=== PATIENT | male | born 2000 | race Caucasian/White ===

== ENCOUNTER 2019-02-20 11:25 | Emergency (ER) | payer MEDICAID, SELFPAY ==
[2019-02-20 11:31] VITALS: BP 147/91; PULSE 75; RESP 12; TEMP 36.7; O2SAT 97
--- NOTE | 2019-02-20 11:43 | ED.GENADUL_ITS ---
Discharge Plan Disposition Patient Disposition: HOME Condition: Good Discharge Details Chief Complaint: Orthopedic Clinical Impression: Ganglion cyst of volar aspect of left wrist Primary Care Provider: None,None ED Provider: Baldo Rudd Home Meds and New Rx's Prescriptions: Continued pantoprazole [Protonix] 20 MG tablet,delayed release (DR/EC) 20 mg PO DAILY Qty: 30 RF: 2 hydroxyzine HCl 25 MG tablet 25 mg PO Q6H PRN Qty: 30 RF: 3 ibuprofen 600 MG tablet 600 mg PO Q6H PRN (Reason: Pain Or Fever) Qty: 30 RF: 0 topiramate [Topamax] 25 MG tablet 25 mg PO HS PRNRF: 0 Discharge Instructions Instructions: Ganglion Cysts (ED) Additional Instructions: Please wear wrist splint for comfort and take ibuprofen for any pain. If not improving over the next couple weeks please follow-up with orthopedist for reassessment and any further treatment as needed. Referrals: Samm Maravilla MD [ [facility] STAFF PHYSICIAN] - (If not improving the next 1-2 call the office for arrangement of appointment) Discharge Data Discharge Date/Time-TO BE ENTERED AT DEPARTURE: 02/20/19 12:00 Medical Decision Making Patient presenting to the emergency department for chief complaint of swelling to the volar wrist. Patient states that this was noticed yesterday and had some slight decrease in sensation to the palmar aspect of his hand. Patient has a soft movable nontender mass to the dorsum of the wrist with decreased sensation to the palmar aspect of the radial nerve distribution. I feel that this is a ganglion cyst that is irritating the cutaneous aspect of the radial nerve otherwise exam is unremarkable. Patient was placed in a wrist splint and encouraged to use ibuprofen otherwise I feel that conservative management initially is appropriate and patient was given orthopedic referral so that if he is not improving in the next 1 to 2 weeks that he can call and arrange an outpatient appointment. After discussion of diagnosis and plan of care patient has no further needs, questions, or concerns and states clear understanding to return to the emergency department for any worsening symptoms. HPI General Mode of arrival: ambulatory . Date/Time Provider Initiated Documentation: 02/20/19 11:29 . Limitations to Documentation: no limitations . Information obtained by: patient . History of Present Illness 18 year old M presents to the emergency department with the chief complaint of Left wrist swelling, described as mild, with intensity rated at 4. Quality is described as aching, and is localized to the left and upper extremity. Patie nt started experiencing this day(s) (1) and it has been constant. Movement worsens symptoms . Patient notes no other symptoms.. Patient did receive the following treatments prior to arrival, none Related Data Home Medications Medication Instructions Recorded Confirmed ibuprofen 600 mg PO Q6H PRN #30 tab 12/02/17 02/20/19 pantoprazole [Protonix] 20 mg PO DAILY #30 tab-cap 03/14/18 02/20/19 hydroxyzine HCl 25 mg PO Q6H PRN #30 tab-cap 05/03/18 02/20/19 topiramate [Topamax] 25 mg PO HS PRN 02/20/19 02/20/19 Previous Rx's Medication Instructions Recorded ibuprofen 600 mg PO Q6H PRN #30 tab 12/02/17 pantoprazole [Protonix] 20 mg PO DAILY #30 tab-cap 03/14/18 hydroxyzine HCl 25 mg PO Q6H PRN #30 tab-cap 05/03/18 Allergies Allergy/AdvReac Type Severity Reaction Status Date / Time orange Allergy Skin Rash Unverified 02/20/19 11:34 General Stated Complaint: Orthopedic STAR: 4 Review of Systems Musculoskeletal Reports as per HPI, Reports arthralgias, Denies limited range of motion, Reports numbness and Reports tingling Integumentary/Breasts Denies rash, Denies sores and Denies wounds Neurologic Reports numbness and Reports tingling PFSH Medical History Sleep trouble (Chronic 06/07/16) Childhood overweight, BMI 85-94.9 percentile (Chronic 06/07/16) Migraine (Chronic 07/02/14) Failed vision screen (Chronic 07/02/14) Concussion (Resolved) Migraine Visual problems Wears glasses Family History Mother Migraine Decreased vision Father Substance abuse GRANDPARENT Heart disease Bleeding disorder Other Asthma Sister Decreased vision Maternal Aunt Decreased vision Social History Smoking/Tobacco Use Status: Never Alcohol Intake: never Drug use: Occasionally Substance use type: marijuana Do you feel safe at home: Yes Do you feel safe in your relationship?: Yes Exam Const General: cooperative, no acute distress and not ill appearing Orientation: alert, awake and oriented x3 Resp Effort & Inspection: normal respiratory effort, able to speak in complete sentences and no respiratory distress Cardio Rate: regular rate Rhythm: regular rhythm Skin General skin exam: no rashes or lesions noted Extrem Left upper extremity: wrist ( ) Details: tenderness Location: of the distal radius, swelling Location: of the volar wrist (Soft movable round mass), normal ROM, normal vascular exam and radial pulse present; no lacerations, no ecchymosis, no crepitus and no deformity and hand Details: normal to inspection, normal capillary refill, neurosensory exam abnormal Details: radial nerve sensory function abnormal Details: decreased light touch sensation (Javed aspect), normal ROM of fingers and no swelling; no tenderness Course Vital Signs Temperature 36.7 C 02/20/19 11:31 Pulse 75 02/20/19 11:31 Respiratory Rate 12 02/20/19 11:31 Blood Pressure 147/91 H 02/20/19 11:31 Pulse Oximetry 97 02/20/19 11:31 Temperature 36.7 C 02/20/19 11:31 Temperature Source Temporal Artery Scan 02/20/19 11:31 Pulse 75 02/20/19 11:31 Respiratory Rate 12 02/20/19 11:31 Respiratory Effort Non-Labored 02/20/19 11:32 Blood Pressure 147/91 H 02/20/19 11:31 Blood Pressure Position Sitting 02/20/19 11:31 Pulse Oximetry 97 02/20/19 11:31 Oxygen Delivery Method Room Air 02/20/19 11:31 Oxygen Flow Rate 0 02/20/19 11:31 Pain Level 1 02/20/19 11:35
[2019-02-20 12:01] VITALS: BP 147/91; PULSE 75; RESP 12; TEMP 36.7; O2SAT 97
== END 2019-02-20 12:00 | disposition home or self-care (01) ==
PROVIDERS: Emergency Provider Nurse Practitioner Family
DX: M67.432 Ganglion, left wrist (principal)
CPT/HCPCS: 29125; 99283; 99282; L3908

== ENCOUNTER 2019-03-11 16:46 | Emergency (ER) | payer MEDICAID, SELFPAY ==
[2019-03-11 16:54] VITALS: BP 120/55; PULSE 82; RESP 16; TEMP 37.2; O2SAT 92
--- NOTE | 2019-03-11 17:54 | ED.GENADUL_ITS ---
Discharge Plan Disposition Patient Disposition: HOME Condition: Good Discharge Details Chief Complaint: RespSymp Clinical Impression: Asthma Primary Care Provider: None,None ED Provider: Ernie Diallo Home Meds and New Rx's Prescriptions: No Action pantoprazole [Protonix] 20 MG tablet,delayed release (DR/EC) 20 mg PO DAILY Qty: 30 RF: 2 hydroxyzine HCl 25 MG tablet 25 mg PO Q6H PRN Qty: 30 RF: 3 topiramate [Topamax] 25 MG tablet 25 mg PO HS PRNRF: 0 Discharge Instructions Instructions: Asthma (ED) Additional Instructions: You have an exacerbation of asthma. Please take your inhaler, 2 puffs, 4 times a day for the next 3 to 4 days, and then every 6 hours as needed after that. Pl ease continue your amoxicillin that you are currently on. Please reduce your smoking, with a goal of stopping as this does worsen your asthma. If you notice any worsening of your symptoms, or any new symptoms such as vomiting, diarrhea, fever, chills, shortness of breath, chest pain, numbness, weakness, or fainting , please return immediately to the emergency department for reevaluation. Please follow up with your primary care provider as soon as possible for reassessment and reevaluation. As always, it was a pleasure participating in your medical care today. Medical Decision Making This is a 18-year-old male who presents today for evaluation of mild shortness of breath. Patient states that he was diagnosed with strep throat 5 to 7 days ago and has been on amoxicillin ever since then. He has had a notable amount of postnasal drip over the last day or 2, and noticed slight increase in shortness of breath. He denies any fever, chills, chest pain. He denies any red flags for PE. Physical exam demonstrates mild wheeze in the right upper lung cason. No crackles or rails throughout the rest of the lung exam. Patient was given a DuoNeb treatment, and after this he states that he had complete resolution of his symptoms and feels excellent. Repeat bedside pulse oximetry is 98%. Patient feels well, no more wheezes on lung exam. No clinical evidence of pneumonia at this time. Recommend continuation of amoxicillin, we will give albuterol here in the ED for home use, recommend close follow-up with his PCP. We have discussed red flags which to return. Diagnosis asthma exacerbation. I have extensively reviewed the treatment plan and discharge instructions with the patient and their family. I have addressed all patient concerns at this time. The patient and family was made aware of what symptoms to monitor for that would warrant a return to the emergency department. Discussed the plan with the patient and family, they demonstrate verbal understanding and agreement with our assessment and plan at this time. HPI General Date/Time Provider Initiated Documentation: 03/11/19 16:49 . HPI Narrative: This is a pleasant 18-year-old male with a past medical history of asthma who does smoke daily marijuana who presents today for evaluation of cough. He was recently diagnosed with strep throat and started on amoxicillin for which she is been taking for the last 5 to 7 days. He states that over the last day or so though he has had significant amounts of postnasal drip, and his felt mildly short of breath. He does have some mild productivity to his cough. He denies fever or chills. He denies malaise. He denies hemoptysis, chest pain, numbness tingling or weakness. He has no other complaints modifying factors. He denies any IV or illicit drug use. He does not use his inhaler at home. Denies PE risk factors such as recent long car rides, immobilization, recent surgery, prior history of DVT or PE, family history of PE or DVT, morbid obesity, exogenous estrogen and smoking, hemoptysis, history of cancer. Related Data Home Medications Medication Instructions Recorded Confirmed pantoprazole [Protonix] 20 mg PO DAILY #30 tab-cap 03/14/18 03/11/19 hydroxyzine HCl 25 mg PO Q6H PRN #30 tab-cap 05/03/18 03/11/19 topiramate [Topamax] 25 mg PO HS PRN 02/20/19 03/11/19 Previous Rx's Medication Instructions Recorded pantoprazole [Protonix] 20 mg PO DAILY #30 tab-cap 03/14/18 hydroxyzine HCl 25 mg PO Q6H PRN #30 tab-cap 05/03/18 Allergies Allergy/AdvReac Type Severity Reaction Status Date / Time orange Allergy Skin Rash Unverified 03/11/19 16:55 General Stated Complaint: RespSymp STAR: 4 Review of Systems Review of Systems All systems reviewed & are unremarkable except as noted in HPI and below PFSH Social History Smoking/Tobacco Use Status: Never Alcohol Intake: never Drug use: Daily Substance use type: marijuana Do you feel safe at home: Yes Do you feel safe in your relationship?: Yes Exam Narrative Exam Narrative: 1.Const: Well-nourished, Well-developed, appearing stated age 2.Eyes: PERRL, no conjunctival injection, and symmetrical lids. 3.ENT: Atraumatic external nose and ears. Moist MM. Neck: Symmetric, trachea midline, No thyromegaly. 4.CVS: +S1/S2, No murmurs or gallops. Peripheral pulses 2+ and equal in all extremities. Brisk capillary refill in all extremities. 5.RESP: Unlabored respiratory effort. No crackles or rhonchi. Minimal wheeze in the right upper lung field. 6.GI: Soft, Nontender/Nondistended, No hepatosplenomegaly. No guarding or rebound. 7.MSK: Normocephalic/Atraumatic, Extremities w/o deformity or ttp No cyanosis or clubbing, Normal movement of all extremities 8.Skin: Warm, Dry. No rashes or lesions. 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 Sensation grossly intact, no focal neurologic deficits. 10.Psych: (AAO) x3. Appropriate mood and affect Course Vital Signs Temperature 37.2 C 03/11/19 16:54 Pulse 82 03/11/19 16:54 Respiratory Rate 16 03/11/19 16:54 Blood Pressure 120/55 L 03/11/19 16:54 Pulse Oximetry 92 L 03/11/19 16:54 Temperature 37.2 C 03/11/19 16:54 Temperature Source Skin 03/11/19 16:54 Pulse 82 03/11/19 16:54 Respiratory Rate 16 03/11/19 16:54 Respiratory Effort 03/11/19 16:56 Respiratory Depth Normal 03/11/19 16:56 Blood Pressure 120/55 L 03/11/19 16:54 Blood Pressure Position Sitting 03/11/19 16:54 Pulse Oximetry 92 L 03/11/19 16:54 Oxygen Delivery Method Room Air 03/11/19 16:54 Oxygen Flow Rate 0 03/11/19 16:54 Pain Level 0 03/11/19 16:54
== END 2019-03-11 18:05 | disposition home or self-care (01) ==
PROVIDERS: Emergency Provider Student in an Organized Health Care Education/Training Program
DX: J45.909 Unspecified asthma, uncomplicated (principal)
CPT/HCPCS: 99283

== ENCOUNTER 2019-11-23 19:21 | Emergency (ER) | payer MEDICAID, SELFPAY ==
--- NOTE | 2019-11-23 19:22 | ED.GENADUL_ITS ---
Discharge Plan Disposition Patient Disposition: HOME Condition: Good Discharge Details Chief Complaint: Fever Clinical Impression: URI (upper respiratory infection), Cough Primary Care Provider: None,None ED Provider: Lindsey Rooney Home Meds and New Rx's Prescriptions: New benzonatate [Tessalon Perles] 100 mg capsule 100 mg PO TID PRN (Reason: cough) Qty: 14 RF: 0 Continued hydroxyzine HCl 25 MG tablet 25 mg PO Q6H PRN Qty: 30 RF: 3 topiramate [Topamax] 25 MG tablet 25 mg PO HS PRNRF: 0 Discharge Instructions Instructions: Benzonatate (By mouth), Acute Cough (ED) Additional Instructions: Continue to encourage water intake. Tylenol and ibuprofen as needed for discomfort or fevers. You may use the Tessalon Perles as prescribed to help with cough. Our manager intensive care unit will recheck to you regarding follow-up with primary care. If you develop difficulty breathing, shortness of breath, inability stay hydrated or other new/worsening symptom please seek care urgently once again. Otherwise, please local primary care in 1 to 2 weeks if not improved. Medical Decision Making Patient is a pleasant 19-year-old male presenting today with chief complaint of cough. He reports that he has had cough for the past 2 weeks that this is p rogressively been worsening. Denies any sore throat or congestion. States that he has had a temperature with a T-max of 101 this morning. Denies any recent travel. No known sick contacts. States is gradual onset. Denies any shortness of breath or difficulty breathing. He reports that this morning he had a coughing fit at which time he brought up large amount of clear-colored sputum and states is very similar to emesis. Denies any hematemesis, hemoptysis. States that he had asthma as a child but has no lung issues at this time. Does smoke marijuana daily. On exam, patient is resting comfortably. He does not appear to be in any acute distress. He is able to speak in complete sentences. No cough was noted on exam. Lungs are clear. Will obtain imaging of the length of his symptoms and that they have progressively been increasing. Chest x-ray was reviewed by radiologist: FINDINGS: Lungs: Unremarkable. No consolidation. Pleural space: Unremarkable. No pleural effusion. No pneumothorax. Heart/Mediastinum: Unremarkable. No cardiomegaly. Bones/joints: Unremarkable. IMPRESSION: No acute findings. Discussed these findings with the patient. Plan to treat symptomatic manageme nt, will prescribe Tessalon Perles. Encourage close follow-up with primary care. He does not have one, I have asked her manager intensive care unit to help facilitate follow-up at the end of next week for reevaluation. He was given return precautions. All questions and concerns were addressed and he is in agreement this plan. HPI General Mode of arrival: ambulatory . Date/Time Provider Initiated Documentation: 11/23/19 19:22 . Limitations to Documentation: no limitations . Information obtained by: patient and RN notes reviewed . History of Present Illness 19 year old M presents to the emergency department with the chief complaint of cough, described as moderate (states cough has been increasing in frequency, no pain associated with this), Patient started experiencing this week(s) (2) and it has been constant. No relieving factors improve symptom(s), No exacerbating factors reported . Patient notes cough, fever/chills (T max 101 this morning) and nausea/vomiting (vomited x 1 associated with coughing); denies chest pain, diaphoresis, headaches, loss of appetite, rash, shortness of breath and weakness. Patient did receive the following treatments prior to arrival, none Related Data Home Medications Medication Instructions Recorded Confirmed hydroxyzine HCl 25 mg PO Q6H PRN #30 tab-cap 05/03/18 11/23/19 topiramate [Topamax] 25 mg PO HS PRN 02/20/19 11/23/19 benzonatate [Tessalon Perles] 100 mg PO TID PRN #14 cap 11/23/19 Previous Rx's Medication Instructions Recorded hydroxyzine HCl 25 mg PO Q6H PRN #30 tab-cap 05/03/18 benzonatate [Tessalon Perles] 100 mg PO TID PRN #14 cap 11/23/19 Allergies Allergy/AdvReac Type Severity Reaction Status Date / Time orange Allergy Skin Rash Unverified 03/11/19 16:55 General STAR: 4 Review of Systems Constitutional Constitutional: Reports as per HPI and Denies headache(s) Eyes Eyes: Reports as per HPI, Denies eye discharge and Denies irritation ENT Ears, Nose, Mouth, and Throat: Reports as per HPI and Denies headache(s) Cardiovascular Cardiovascular: Reports as per HPI, Denies chest pain and Denies dyspnea Respiratory Respiratory: Reports as per HPI and Denies dyspnea Gastrointestinal Gastrointestinal: Reports as per HPI, Denies abdominal pain, Denies change in bowel habits, Denies nausea and Denies vomiting Integumentary/Breasts Skin/Breast: Reports as per HPI and Denies rash Neurologic Neurologic: Reports as per HPI and Denies headache(s) [facility], [facility] Medical History Childhood overweight, BMI 85-94.9 percentile (Chronic 06/07/16) Concussion (Resolved) Reports at age 12 he struck his head on the bottom of the pool and was symptomatic for a few weeks afterwards Failed vision screen (Chronic 07/02/14) R 20/80, L 20/60 Migraine Migraine (Chronic 07/02/14) Sleep trouble (Chronic 06/07/16) Visual problems Wears glasses Social History Smoking/Tobacco Use Status: Never Alcohol Intake: never Drug use: Daily Substance use type: marijuana Do you feel safe at home: Yes Do you feel safe in your relationship?: Yes Exam Const General: cooperative, healthy appearing, comfortable, no acute distress, well developed and well groomed Nutritional Appearance: average body habitus and well nourished Orientation: alert and awake [facility] Head: normal to inspection, normocephalic and atraumatic Ears: hearing grossly normal bilaterally, external ears normal and TM's normal bilaterally General nose exam: external nose normal and nares normal Face and sinus: normal facial exam, sinuses nontender and face symmetric Mouth: oral mucosae normal, lip normal, tongue normal, oropharynx normal and moist mucous membranes Teeth and gingiva: dentition normal Throat: posterior oropharynx normal, tonsils normal and uvula midline Eyes General: appearance normal, both eyes and all related structures Neck Neck: normal visual inspection, full ROM, no lymphadenopathy and no meningeal signs Resp Effort & Inspection: normal respiratory effort, able to speak in complete sentences and no respiratory distress Auscultation: clear to auscultation bilaterally, no rales, no rhonchi and no wheezes Cardio Rate: regular rate Rhythm: regular rhythm Heart Sounds: S1 normal and S2 normal Skin General skin exam: no rashes or lesions noted Neuro General: alert and awake Cognition: normal cognition Speech: speech normal Gait: normal gait Psych Appearance: grossly normal and well kempt Mental Status: mental status grossly normal Speech and Movement: speech and movement normal
[2019-11-23 19:26] VITALS: BP 133/69; PULSE 96; RESP 18; TEMP 36.2; O2SAT 96
--- NOTE | 2019-11-23 19:36 | NUR.NOTE ---
Nursing Note: Pt states no contact with anyone with COVID 19 and has not traveled to affected countries
--- NOTE | 2019-11-23 20:00 | DI.RAD_ITS ---
EXAM: XR CHEST 2V PA LATERAL CLINICAL HISTORY: cough x 2 weeks TECHNIQUE: 2D digital imaging was performed. COMPARISON: No exams were available for comparison FINDINGS: MEDIASTINUM: Normal. HEART: Normal. PULMONARY VASCULATURE: Normal. LUNGS: Clear. PLEURAL SPACE: No pleural effusion or pneumothorax. BONE:Normal. OTHER FINDINGS:Normal. IMPRESSION: No acute pulmonary findings. DATA REPOSITORY: RADIATION DOSE DELIVERED:
--- NOTE | 2019-11-23 20:08 | DI.VRAD_ITS ---
PROCEDURE INFORMATION: Exam: XR Chest, 2 Views Exam date and time: 11/23/2019 7:57 PM Age: 19 years old Clinical indication: Patient HX: Cough x 2 weeks TECHNIQUE: Imaging protocol: XR of the chest Views: 2 views. COMPARISON: No relevant prior studies available. FINDINGS: Lungs: Unremarkable. No consolidation. Pleural space: Unremarkable. No pleural effusion. No pneumothorax. Heart/Mediastinum: Unremarkable. No cardiomegaly. Bones/joints: Unremarkable. IMPRESSION: No acute findings. Dictated and Authenticated by: Kev Gore MD. Ordering:JORDAN Portillo MD
[2019-11-23] MEDS: Benzonatate 100 MG CAP 200 MG PO (20:21)
== END 2019-11-23 23:05 | disposition home or self-care (01) ==
PROVIDERS: Emergency Provider Physician Assistant
DX: J06.9 Acute upper respiratory infection, unspecified (principal); R05 Cough; R50.9 Fever, unspecified; F12.10 Cannabis abuse, uncomplicated
CPT/HCPCS: 99283; 71046

== ENCOUNTER 2020-02-22 06:21 | Emergency (ER) | payer MEDICAID, SELFPAY ==
[2020-02-22 06:24] VITALS: BP 140/78; PULSE 70; RESP 16; TEMP 36.5; O2SAT 98
--- NOTE | 2020-02-22 06:32 | ED.GENADUL_ITS ---
Discharge Plan Disposition Patient Disposition: HOME Condition: Good Discharge Details Chief Complaint: DentalOral Clinical Impression: Dental infection Primary Care Provider: None,None ED Provider: Milton Yepez Meds and New Rx's Prescriptions: New amoxicillin 500 mg capsule 500 mg PO TID Qty: 20 RF: 0 Discharge Instructions Instructions: Dental Abscess (ED) Additional Instructions: Take antibiotic as directed. Alternate ibuprofen with acetaminophen as we discussed. Follow-up with dentistry as scheduled. Return to ED for fever, face swelling/redness, difficulty breathing, inability to swallow. Medical Decision Making Patient with worsening dental pain as well as percussion tenderness suggesting probable dental infection. We will start him on amoxicillin. We will have him alternate ibuprofen with acetaminophen. Follow-up with dentist as planned. Return to ED for worsening pain, fever, facial swelling or redness, difficulty breathing, inability to swallow. HPI General Mode of arrival: ambulatory . Date/Time Provider Initiated Documentation: 02/22/20 06:30 . Limitations to Documentation: no limitations . Information obtained by: patient and RN notes reviewed . HPI Narrative: Patient presents to ED with worsening right upper tooth ache. Tooth has been bothering him for some time. He is scheduled to have extraction of that tooth as well as wisdom teeth on the th. Over the last few days his upper jaw and face have been getting worse in terms of pain. He has had no fever. He is noticed no facial swelling. He has taken ibuprofen sporadically but nothing today. Related Data Home Medications Medication Instructions Recorded Confirmed amoxicillin 500 mg PO TID #20 cap 02/22/20 Previous Rx's Medication Instructions Recorded amoxicillin 500 mg PO TID #20 cap 02/22/20 Allergies Allergy/AdvReac Type Severity Reaction Status Date / Time orange Allergy Skin Rash Unverified 02/22/20 06:27 General Stated Complaint: DentalOral STAR: 4 Review of Systems Constitutional Constitutional: Denies fever(s) ENT Ears, Nose, Mouth, and Throat: Reports dental pain, Denies dysphagia and Denies neck pain Cardiovascular Cardiovascular: Denies dyspnea Respiratory Respiratory: Denies dyspnea Gastrointestinal Gastrointestinal: Denies dysphagia Musculoskeletal Musculoskeletal: Denies neck pain [facility] Medical History Concussion (Resolved) Reports at age 12 he struck his head on the bottom of the pool and was symptomatic for a few weeks afterwards Migraine (Chronic 07/02/14) Sleep trouble (Chronic 06/07/16) Surgical History No significant past surgical history (Acute) Social History Smoking/Tobacco Use Status: Never Alcohol Intake: never Drug use: Daily Substance use type: marijuana Do you feel safe at home: Yes Do you feel safe in your relationship?: Yes Exam Const General: cooperative, comfortable and no acute distress Nutritional Appearance: obese Orientation: alert and oriented x3 HENMT Face and sinus: normal facial exam, no erythema, no edema and no fluctuance Mouth: oral mucosae normal, lip normal and tongue normal Teeth and gingiva: gingiva normal and abnormal tooth or associated gingiva (Tooth #2 with decay and fracture, percussion tenderness present) Neck Neck: normal visual inspection Resp Effort & Inspection: normal respiratory effort Course Vital Signs Vital signs: Vital Signs Temperature 97.7 F 02/22/20 06:24 Pulse 70 02/22/20 06:24 Respiratory Rate 16 02/22/20 06:24 Blood Pressure 140/78 02/22/20 06:24 Pulse Oximetry 98 02/22/20 06:24 Temperature 97.7 F 02/22/20 06:24 Temperature Source Skin 02/22/20 06:24 Pulse 70 02/22/20 06:24 Respiratory Rate 16 02/22/20 06:24 Respiratory Effort 02/22/20 06:28 Blood Pressure 140/78 02/22/20 06:24 Blood Pressure Position Sitting 02/22/20 06:24 Pulse Oximetry 98 02/22/20 06:24 Oxygen Delivery Method Room Air 02/22/20 06:24 Oxygen Flow Rate 0 02/22/20 06:24 Pain Level 7 02/22/20 06:28
[2020-02-22] MEDS: Amoxicillin 500 MG CAP PO (06:42)
[2020-02-22] MEDS: Ibuprofen 600 MG TAB PO (06:42)
== END 2020-02-22 06:49 | disposition home or self-care (01) ==
PROVIDERS: Emergency Provider Emergency Medicine
DX: R68.84 Jaw pain (principal); K04.7 Periapical abscess without sinus
CPT/HCPCS: 99283

== ENCOUNTER 2020-05-19 14:50 | Outpatient (REF) | payer MEDICAID, SELFPAY ==
[2020-05-22 13:47] LABS: Method Summary See Comments; Patient Race White; SARS-CoV-2 RNA Undetected (Undetected); SARS-CoV-2 Specimen Source Nasal
== END 2020-05-19 15:10 ==
LOC: NCHCN 14:50
PROVIDERS: Visit Provider Nurse Practitioner Family
DX: R05 Cough (principal)
CPT/HCPCS: U0003

== ENCOUNTER 2020-08-25 19:19 | Outpatient (REF) | payer MEDICAID, SELFPAY ==
[2020-08-29 19:19] LABS: COVID-19 RT-PCR Result NEGATIVE (Negative)
== END 2020-08-25 19:39 ==
LOC: NCHCN 19:19
PROVIDERS: PCP Nurse Practitioner Family; Visit Provider Nurse Practitioner Family
DX: Z20.828 Contact with and (suspected) exposure to other viral communicable diseases (principal)
CPT/HCPCS: U0003

== ENCOUNTER 2021-11-20 16:16 | Emergency (ER) | payer MEDICAID, SELFPAY ==
[2021-11-20 16:21] VITALS: BP 147/78; PULSE 75; RESP 18; TEMP 36.7; O2SAT 98
--- NOTE | 2021-11-20 16:33 | W.ED.GENAD ---
Discharge Plan Disposition Patient Disposition: HOME Condition: Stable Discharge Details Clinical Impression: Dog bite of left lower leg Primary Care Provider: Kirk Gipson ED Provider: Marta Jaffe Home Meds and New Rx's Prescriptions: New amoxicillin-pot clavulanate [Augmentin] 500-125 mg tablet 1 tab PO BID 7 Days Qty: 14 0RF No Action amoxicillin 500 mg capsule 500 mg PO TID Qty: 20 0RF Discharge Instructions Instructions: Animal Bite (ED) Additional Instructions: Please take the antibiotic twice daily as prescribed. Take it with a probiotic or eat yogurt while taking the medication. Keep wound clean and dry. Wash with soap and water daily. You may apply antibiotic ointment for the first 1 to 2 days. However then allowed to air dry. Please return for any red streaks, drainage, swelling, or signs of infection. Follow up with primary care provider in 3-5 days. Return to ED sooner if any worsening or concerns. Increase oral fluids. Please take Tylenol or Ibuprofen with food every 4-6 hours as needed for pain and swelling. Referrals: Kirk Gipson, TAMALE MAKER [Primary Care Provider] - 2 weeks Medical Decision Making 21-year-old male presents to the ER with left calf dog bite which occurred prior to arrival. Patient states that the person that they are renting from has a [place] bit side of the leg. He does have a circular superficial dog bite with surrounding erythema and abrasions noted to the left lateral calf. It did break the skin in multiple areas. No suturable laceration noted bleeding is controlled. He has not had a tetanus shot within the last 5 to 10 years. Last tetanus was 2011. Wound care, Augmentin will be given here in the department, Tdap and will place patient on 5 to 7 days of. Animal control dog bite form filled out by staffing consultant. Patient discharged with home care and strict return instructions, verbalized understanding. This text was generated using [employer] system, please disregard any oddities of phrase or misspellings. HPI General Mode of arrival: ambulatory. Date/Time Provider Initiated Documentation: 11/20/21 16:18. Limitations to Documentation: no limitations. Information obtained by: patient and RN notes reviewed. HPI Narrative: 21-year-old male presents to the ER with left calf dog bite which occurred prior to arrival. Patient states that the person that they are renting from has a [place] bit side of the leg. He does have a circular superficial dog bite with surrounding erythema and abrasions noted to the left lateral calf. It did break the skin in multiple areas. No suturable laceration noted bleeding is controlled. He has not had a tetanus shot within the last 5 to 10 years. Last tetanus was 2011. Related Data Home Medications Medication Instructions Recorded Confirmed amoxicillin 500 mg capsule 500 mg PO TID #20 cap 02/22/20 amoxicillin 500 mg-potassium 1 tab PO BID 7 Days #14 tab 11/20/21 clavulanate 125 mg tablet (Augmentin) Previous Rx's Medication Instructions Recorded amoxicillin 500 mg capsule 500 mg PO TID #20 cap 02/22/20 amoxicillin 500 mg-potassium 1 tab PO BID 7 Days #14 tab 11/20/21 clavulanate 125 mg tablet (Augmentin) Allergies Allergy/AdvReac Type Severity Reaction Status Date / Time orange Allergy Skin Rash Unverified 02/22/20 06:27 General Stated Complaint: AnimalBite STAR: 3 Review of Systems All systems reviewed & are unremarkable except as noted in HPI and below Integumentary/Breasts Skin/Breast: Reports as per HPI and Reports wounds PFSH All Active Problems (Updated 11/20/21 @ 16:47 by Marta Jaffe) Dog bite of left lower leg (Acute) Ganglion cyst of volar aspect of left wrist (Acute) Sleep trouble (Chronic 06/07/16) Childhood overweight, BMI 85-94.9 percentile (Chronic 06/07/16) Migraine (Chronic 07/02/14) Failed vision screen (Chronic 07/02/14) R 20/80, L 20/60 Medical History (Updated 11/20/21 @ 16:47 by Marta Jaffe) Concussion Reports at age 12 he struck his head on the bottom of the pool and was symptomatic for a few weeks afterwards Surgical History No significant past surgical history Family History Mother Migraine Decreased vision Father Substance abuse GRANDPARENT Heart disease Bleeding disorder Other Asthma Sister Decreased vision Maternal Aunt Decreased vision Social History Smoking/Tobacco Use Status: Never Smoking risk assessment performed?: Yes Alcohol Intake: never Drug use: Daily Substance use type: marijuana Do you feel safe at home: Yes Do you feel safe in your relationship?: Yes Exam Extrem General: normal to inspection Left lower extremity: normal to inspection, full ROM and normal capillary refill; No no edema Ankle/foot/toe images: 1. Dog Bite, Multiple Teeth saha noted, superficial, surrounding superficial abrasion noted. Course Vital Signs Vital signs: Vital Signs Temperature 36.7 C 11/20/21 16:21 Pulse 75 11/20/21 16:21 Respiratory Rate 18 11/20/21 16:21 Blood Pressure 147/78 H 11/20/21 16:21 Pulse Oximetry 98 11/20/21 16:21 Temperature 36.7 C 11/20/21 16:21 Temperature Source Tympanic 11/20/21 16:21 Pulse 75 11/20/21 16:21 Respiratory Rate 18 11/20/21 16:21 Respiratory Effort 11/20/21 16:24 Blood Pressure 147/78 H 11/20/21 16:21 Blood Pressure Position Supine 11/20/21 16:21 Pulse Oximetry 98 11/20/21 16:21 Oxygen Delivery Method Room Air 11/20/21 16:21 Oxygen Flow Rate 0 11/20/21 16:21 Pain Level 1 11/20/21 16:21
[2021-11-20] MEDS: Amoxicillin 875/Clav. 125 TAB PO (16:36)
== END 2021-11-20 16:58 | disposition home or self-care (01) ==
PROVIDERS: Emergency Provider Registered Nurse Emergency; PCP Nurse Practitioner Family
DX: S81.852A Open bite, left lower leg, initial encounter (principal); W54.0XXA Bitten by dog, initial encounter
CPT/HCPCS: 90471; 99284; 99283

== ENCOUNTER 2021-12-25 09:53 | Emergency (ER) | payer MEDICAID, SELFPAY ==
[2021-12-25 10:22] VITALS: BP 130/64; PULSE 91; RESP 16; TEMP 36.6; O2SAT 98
--- NOTE | 2021-12-25 11:45 | RT.EKG_ITS ---
APPROVED REPORT Exam: Resting ECG Reason for Exam: dizziness Patient Location: E HR:68 bpm ECG Measurements Heart Rate 68 AXIS VT 154 P 44 QRSd 100 QRS 48 QT 350 T 16 QTc 373 Conclusion Sinus arrhythmia...V-rate 56- 81, variation>10% ST elev, probable normal early repol pattern...ST elevation, age<55. Sinus. Benign ealry repolarization. No STEMI. I have reviewed and interpreted ECG and agree with software generated interpretation.
[2021-12-25 12:13] LABS: Abs Immature Grans 0.02 10^3/uL (0.0-0.06); Absolute Basophil Count 0.02 10^3/uL (0.0-0.2); Absolute Lymphocyte Count 0.66 10^3/uL (1.2-3.4); Absolute Monocyte Count 0.85 10^3/uL (0.1-0.8); Absolute Neutrophil Count 4.44 10^3/uL (1.2-6.7); Basophils % 0.3; HCT 43.5 % (40.0-50.0); HGB 14.1 g/dL (13.5-17.5); Immature Grans % 0.3; MCH 27.4 pg (27.0-33.0); MCHC 32.4 % (32.0-36.0); MCV 84.6 fL (80-95); MPV 9.7 fL (8.0-11.0); Monocytes % 14.2; Neutrophils % 74.2; Nucleated RBC 0 %; Platelet Count 225 10^3/uL (130-400); RBC 5.14 10^6/uL (4.36-5.78); RDW 12.5 % (11.8-14.1); RDW-SD 38.6 fL; WBC 5.99 10^3/uL (4.4-10.8)
--- NOTE | 2021-12-25 12:15 | DI.CT_ITS ---
Exam(s) CT HEAD WO EXAM: CT HEAD WO CLINICAL HISTORY: Headache, Nausea. TECHNIQUE: Imaging Protocol: Axial computed tomography images with coronal and sagittal reformatted images were created and reviewed COMPARISON: No exams were available for comparison FINDINGS: There are no skull fractures nor fluid in the visualized paranasal sinuses. There is no evidence of intracranial hemorrhage, mass effect, or shift of midline structures. There are no extra-axial fluid collections. The ventricles are not enlarged or shifted and there is no blo od within the ventricular system nor within the basal cisterns. IMPRESSION: No acute intracranial findings on this noninfused CT scan of the brain. RADIATION DOSE DELIVERED: 755.68mGy.cm Total DLP DATA REPOSITORY: All CT scans at this facility are submitted to the National Radiology Data Registry (NRDR) Dose Index Registry (DIR) with the [employer] (ACR). RADIATION OPTIMIZATION: All CT scans at this facility use at least one of these dose optimization te chniques: automated exposure control; mA and/or kV adjustment per patient size (includes targeted exa ms where dose is matched to clinical indication); or iterative reconstruction.
[2021-12-25 12:26] LABS: ALT 57 U/L (16-63); AST 28 U/L (15-37); Albumin 4.3 g/dL (3.4-5.0); Alkaline Phosphatase 101 U/L (46-116); Anion Gap 6.7 mmol/L (3-11); BUN 13 mg/dL (7-18); Bilirubin, Total 0.4 mg/dL (0.2-1.0); CO2 27.3 mmol/L (21.0-32.0); CREATININE 1.1 mg/dL (0.70-1.30); Calcium 9.3 mg/dL (8.5-10.1); Chloride 102 mmol/L (98-107); Glucose 100 mg/dL (74-106); Potassium 3.8 mmol/L (3.5-5.1); Sodium 136 mmol/L (136-145)
--- NOTE | 2021-12-25 12:30 | DI.CT_ITS ---
Exam(s) CT ABDOMEN PELVIS WO EXAM: CT ABDOMEN PELVIS WO CLINICAL HISTORY: Abd Pain, N/V/D. TECHNIQUE: Imaging Protocol: Axial computed tomography images with coronal and sagittal reformatted images were created and reviewed CONTRAST MATERIAL: Intravenous: none Oral: None COMPARISON: CT CT HEAD WO from 12/25/2021 FINDINGS: VISUALIZED LUNG BASES: No nodules nor pleural effusions evident. ABDOMEN: There is no ascites. LIVER: There are no obvious focal hepatic lesions evident of this noninfused study. GALLBLADDER/BILIARY: No obvious gallbladder pathology. CBD is not dilated. PANCREAS: No evidence of pancreatic mass nor dilatation of the pancreatic duct. SPLEEN: Spleen size is upper normal. No obvious splenic lesions evident on this noninfused study ADRENALS: There are no significant adrenal masses. KIDNEYS:No cysts evident. No solid renal masses. No calculi nor hydronephrosis. . ABDOMINAL AORTA: Abdominal aorta is not enlarged. Retroaortic left renal vein is noted, seen approxi mately 5 percent of general population. LYMPH NODES: There is no retroperitoneal nor paraaortic adenopathy. ABDOMINAL WALL: No evidence of significant anterior abdominal wall nor inguinal hernia. GI: There is no evidence of bowel obstruction, free air, nor abscess. PELVIS: LYMPH NODES: There is no intrapelvic nor inguinal adenopathy. GI: No evidence of appendicitis.There is no significant sigmoid diverticular disease. URINARY BLADDER: No calculi nor obvious masses evident REPRODUCTIVE: Prostate gland normal size. Seminal vesicles unremarkable. OSSEOUS: No significant osseous lesions. IMPRESSION: 1. No significant findings in the abdomen and pelvis on this non infused CT study. 2. No renal tract calculi. No hydronephrosis. 3. No evidence of acute inflammatory process in either iliac fossa. Appendix appears unremarkable. RADIATION DOSE DELIVERED: 1,330.54mGy.cm Total DLP DATA REPOSITORY: All CT scans at this facility are submitted to the National Radiology Data Registry (NRDR) Dose Index Registry (DIR) with the [employer] (ACR). RADIATION OPTIMIZATION: All CT scans at this facility use at least one of these dose optimization te chniques: automated exposure control; mA and/or kV adjustment per patient size (includes targeted exa ms where dose is matched to clinical indication); or iterative reconstruction.
--- NOTE | 2021-12-25 12:31 | ED.GENADUL_ITS ---
Discharge Plan Disposition Patient Disposition: HOME Condition: Stable Discharge Details Clinical Impression: Headache, Viral illness Primary Care Provider: Kirk Gipson ED Provider: Marta Jaffe Home Meds and New Rx's Prescriptions: No Action amoxicillin 500 mg capsule 500 mg PO TID Qty: 20 0RF Discharge Instructions Instructions: Viral Syndrome (ED), General Headache (ED) Additional Instructions: At this time your work-up is within normal limits. No evidence for intracranial bleed, hemorrhage or any acute abnormality. CT abdomen shows no evidence for infection or inflammation. I do believe that this is atypical migraine and URI. Please continue to quarantine and wear a mask pending the Covid send out swab. Please take the nausea medication as directed. Follow up with primary care provider in 3-5 days. Return to ED sooner if any worsening or concerns. Increase oral fluids. Please take Tylenol or Ibuprofen with food every 4-6 hours as needed for pain a nd swelling. Stand Alone Forms: PENDING COVID-19 TESTING, Work Release Referrals: Kirk Gipson, SENIOR SUSTAINABILITY ADVISOR [Primary Care Provider] - 3 days Discharge Data Discharge Date/Time-TO BE ENTERED AT DEPARTURE: 12/25/21 14:20 Medical Decision Making 21-year-old male presents to the ER with chief complaint of headache, nausea, vomiting,diarrhea x2 days. Patient reports he is forgetting things and awoke this morning at 6:30 AM in a bathtub. He also reports of mid back pain. He denies any dysuria no cough or productive cough. He did take an Excedrin Migraine at 9 AM this morning. He reports some sharp abdominal pain. Denies smoking denies any illicit drugs denies any alcohol. Work-up ordered including labs, CT head abdomen pelvis, send out COVID test. CBC shows no leukocytosis, CMP largely within normal limits. Covid test is pending. Given instructions for CT results. Instructed to follow-up with PCP and continue quarantine until Covid swab is negative. Patient remained hemodynamically stable alert and oriented throughout stay. This text was generated using [employer] system, please disregard any oddities of phrase or misspellings. HPI General Mode of arrival: ambulatory . Date/Time Provider Initiated Documentation: 12/25/21 11:34 . Limitations to Documentation: no limitations . Information obtained by: patient, RN notes reviewed and old records reviewed . HPI Narrative: 21-year-old male presents to the ER with chief complaint of headache, nausea, vomiting,diarrhea x2 days. Patient reports he is forgetting things and awoke this morning at 6:30 AM in a bathtub. He also reports of mid back pain. He denies any dysuria no cough or productive cough. He did take an Excedrin Migraine at 9 AM this morning. He reports some sharp abdominal pain. Denies smoking denies any illicit drugs denies any alcohol. Related Data Home Medications Medication Instructions Recorded Confirmed amoxicillin 500 mg capsule 500 mg PO TID #20 cap 02/22/20 12/25/21 Previous Rx's Medication Instructions Recorded amoxicillin 500 mg capsule 500 mg PO TID #20 cap 02/22/20 Allergies Allergy/AdvReac Type Severity Reaction Status Date / Time orange Allergy Skin Rash Unverified 12/25/21 14:15 General Stated Complaint: Headache STAR: 3 Review of Systems All systems reviewed & are unremarkable except as noted in HPI and below Constitutional Constitutional: Reports as per HPI, Reports difficulty sleeping and Reports headache(s) Eyes Eyes: Denies loss of vision ENT Ears, Nose, Mouth, and Throat: Reports headache(s) Respiratory Respiratory: Reports system reviewed and no additional complaints, except as documented, Denies change in phlegm color and Denies cough Gastrointestinal Gastrointestinal: Reports abdominal pain, Reports diarrhea, Reports nausea and Reports vomiting Genitourinary Genitourinary: Denies dysuria and Denies penile discharge Musculoskeletal Musculoskeletal: Reports back pain and Reports myalgias Neurologic Neurologic: Reports as per HPI, Denies abnormal speech, Reports headache(s), Denies loss of vision, Reports memory loss and Denies tremor(s) Psychiatric Psychiatric: Reports memory loss PFSH All Active Problems Headache (Acute) Viral illness (Acute) Ganglion cyst of volar aspect of left wrist (Acute) Sleep trouble (Chronic 06/07/16) Childhood overweight, BMI 85-94.9 percentile (Chronic 06/07/16) Migraine (Chronic 07/02/14) Failed vision screen (Chronic 07/02/14) R 20/80, L 20/60 Medical History Concussion Reports at age 12 he struck his head on the bottom of the pool and was symptomatic for a few weeks afterwards Surgical History No significant past surgical history Family History Mother Migraine Decreased vision Father Substance abuse GRANDPARENT Heart disease Bleeding disorder Other Asthma Sister Decreased vision Maternal Aunt Decreased vision Social History Smoking/Tobacco Use Status: Never Smoking risk assessment performed?: Yes Alcohol Intake: never Drug use: Daily Substance use type: marijuana Do you feel safe at home: Yes Do you feel safe in your relationship?: Yes Exam Narrative Exam Narrative: Constitutional: Alert and oriented x3. Appears stated age. Obese body habitus. Head: Normocephalic, no trauma. Eyes: Pupils PERRL, Red reflex noted, EOM's intact. Eyelids symmetrical without lesions, discharge, or swelling. ENT: Bilateral TM's WNL, External ear normal to inspection, no mastoid TTP, swelling, or erythema, Nasal turbinates WNL, no nasal discharge. Normal dentition, Posterior pharynx slightly erythemic, no exudate. Chest: RRR, Normal S1, S2, distal pulses intact. Resp: Lungs clear to auscultation bilaterally, no wheezes, rales, or rhonchi. Abdomen: Soft, non-distended, Normoactive bowel sounds all 4 quads. Nontender to palpation all 4 quadrants. Musculoskeletal: Normal gait, 5/5 strength to all four extremities. Skin: No suspicious rashes or lesions. Capillary refill less than 2 sec. Neurologic: Cranial nerves II-XII intact. Alert and oriented x 3. Motor: No deficits noted. Sensory: Intact bilaterally all 4 extremities. Reflexes: DTR's intact bilaterally.. Hematologic/Lymphatic: No ecchymosis, no lymphadenopathy. Course Vital Signs Vital signs: Vital Signs Temperature 36.6 C 12/25/21 10:22 Pulse 91 H 12/25/21 10:22 Respiratory Rate 16 12/25/21 10:22 Blood Pressure 130/64 12/25/21 10:22 Pulse Oximetry 98 12/25/21 10:22 Temperature 36.6 C 12/25/21 10:22 Temperature Source Temporal Artery Scan 12/25/21 10:22 Pulse 91 H 12/25/21 10:22 Respiratory Rate 16 12/25/21 10:22 Blood Pressure 130/64 12/25/21 10:22 Blood Pressure Position Supine 12/25/21 10:22 Pulse Oximetry 98 12/25/21 10:22 Oxygen Delivery Method Room Air 12/25/21 10:22 Oxygen Flow Rate 0 12/25/21 10:22 Pain Level 6 12/25/21 10:22 Comment 12/25/21 10:22 Lab/Test Results Lab/Test Results: Laboratory Tests Range/Units 12/25/21 12/25/21 12:00 12:00 WBC (4.4-10.8) 10^3/uL 5.99 RBC (4.36-5.78) 10^6/uL 5.14 Hgb (13.5-17.5) g/dL 14.1 Hct (40.0-50.0) % 43.5 MCV (80-95) fL 84.6 MCH (27.0-33.0) pg 27.4 MCHC (32.0-36.0) % 32.4 RDW (11.8-14.1) % 12.5 Plt Count (130-400) 10^3/uL 225 MPV (8.0-11.0) fL 9.7 Immature Gran % 0.3 Neutrophils % 74.2 Lymphocytes % 11.0 Monocytes % 14.2 Eosinophils % 0.0 Basophils % 0.3 Nucleated RBC % % 0 Absolute Neutrophils (1.2-6.7) 10^3/uL 4.44 Absolute Lymphocytes (1.2-3.4) 10^3/uL 0.66 L Absolute Monocytes (0.1-0.8) 10^3/uL 0.85 H Absolute Eosinophils (0.0-0.7) 10^3/uL 0.00 Absolute Basophils (0.0-0.2) 10^3/uL 0.02 Sodium (136-145) mmol/L 136 Potassium (3.5-5.1) mmol/L 3.8 Chloride (98-107) mmol/L 102 Carbon Dioxide (21.0-32.0) mmol/L 27.3 Anion Gap (3-11) mmol/L 6.7 BUN (7-18) mg/dL 13 Creatinine (0.70-1.30) mg/dL 1.1 Estimated GFR/1.73 m2 (mL/min/1.73m2) >= 60.00 Glucose (74-106) mg/dL 100 Calcium (8.5-10.1) mg/dL 9.3 Total Bilirubin (0.2-1.0) mg/dL 0.4 AST (15-37) U/L 28 ALT (16-63) U/L 57 Alkaline Phosphatase (46-116) U/L 101 Total Protein (6.4-8.2) g/dL 8.0 Albumin (3.4-5.0) g/dL 4.3
[2021-12-25] MEDS: Ondansetron O.D.T. 4 MG TABEF PO (13:13)
[2021-12-25] MEDS: Ondansetron O.D.T. 4 MG TABEF, 3 TABS/BTL PO (14:16)
[2021-12-25 14:17] VITALS: BP 134/71; PULSE 93; RESP 16; TEMP 37.3; O2SAT 96
[2021-12-27 16:25] LABS: COVID-19 RT-PCR UVMMC Result Positive (Negative)
--- NOTE | 2021-12-27 16:28 | W.ED.FU ---
Date of service: 12/27/21 Time of Service: 16:28 Follow Up Plan: 1628: Call made to patient regarding positive Covid result received from the lab. No answer voicemail left for patient to call back.
--- NOTE | 2021-12-29 05:44 | W.ED.FU ---
Follow Up Plan: Patient called the ED in the a.m. of 12/29 to return a phone call left by Marta Jaffe. Patient was informed of his positive Covid test from 12/25/21. Patient states he is not vaccinated. He was advised to quarantine until 5 days after his positive result unless he remains symptomatic and he is advised to discuss any further questions with his primary care doctor.
--- NOTE | 2021-12-30 16:28 | NUR.NOTE ---
Addendum entered by Nathalie Grimes 12/30/21 18:34: At patient's request the result was faxed to his boss via fax email. [email or web address] Nathalie Grimes Original Note: Nursing Note: Patient called asking for a copy of his positive COVID result. He will pick it up. He was told to call and we will bring it out to him. Nathalie Grimes
== END 2021-12-25 14:20 | disposition home or self-care (01) ==
PROVIDERS: Physician Assistant; Emergency Provider Registered Nurse Emergency; PCP Nurse Practitioner Family
DX: U07.1 COVID-19 (principal); Z28.310 Unvaccinated for COVID-19
CPT/HCPCS: 36415; 80053; 83690; 93005; 99284; U0003; 70450; 74176; 84484; 85025; 93010; 99283

== ENCOUNTER 2022-11-05 06:57 | Emergency (ER) | payer MEDICAID, SELFPAY ==
[2022-11-05 07:02] VITALS: BP 127/87; PULSE 71; RESP 18; TEMP 36.9; O2SAT 98
--- NOTE | 2022-11-05 07:30 | ED.GENADUL_ITS ---
Discharge Plan Disposition Patient Disposition: Home Discharge Details Clinical Impression: Migraine Primary Care Provider: Unknown,Unknown ED Provider: Felix Martins Home Meds and New Rx's Prescriptions: No Action No Known Home Meds Discharge Instructions Instructions: General Headache (ED) Additional Instructions: It is important that you hydrate yourself well and you have a headache. I recommended to get some Excedrin Migraine pills, these are [id number], please use it as directed when you feel a headache coming on. Please follow-up your primary care doctor within the next week. You may always return to the emergency department if you have any concerns. Stand Alone Forms: Work Release Discharge Data Discharge Date/Time-TO BE ENTERED AT DEPARTURE: 11/05/22 09:04 Medical Decision Making 22-year-old with longstanding history of migraines. Presents with one of his ty pical migraine to the emergency department. He did better with IV fluids, magnesium, Reglan and Toradol. No indication for imaging at this time. No indication for blood work at this time HPI General Date/Time Provider Initiated Documentation: 11/05/22 07:12 . HPI Narrative: 22-year-old presents to the emergency room stating that he gets a migraine at least once a month. This been going on for couple years now. He did take some Tylenol ibuprofen with no relief. He has been vomiting intermittently. Poor sleep for the past 4 days. When asked what he thinks is the precipitating factor being he says he has some tension in the back of his neck that sometimes radiates to the left side of his head. The tension has been acting up lately. He said no fevers no chills. No vision changes. No focal weakness. No paresthesias does feel anxious. Related Data Home Medications Medication Instructions Recorded Confirmed Unknown [No Known Home Meds] 11/05/22 11/05/22 Allergies Allergy/AdvReac Type Severity Reaction Status Date / Time orange Allergy Skin Rash Unverified 11/05/22 07:08 General Stated Complaint: Headache STAR: 3 Review of Systems Narrative: 10 review of systems is negative unless marked positive in the HPI PFSH All Active Problems (Updated 11/05/22 @ 07:35 by Felix Martins MD) Ganglion cyst of volar aspect of left wrist (Acute) Sleep trouble (Chronic 06/07/16) Childhood overweight, BMI 85-94.9 percentile (Chronic 06/07/16) Migraine (Chronic 07/02/14) Failed vision screen (Chronic 07/02/14) R 20/80, L 20/60 Medical History (Updated 11/05/22 @ 07:35 by Felix Martins MD) Concussion Reports at age 12 he struck his head on the bottom of the pool and was symptomatic for a few weeks afterwards Surgical History No significant past surgical history Family History Mother Migraine Decreased vision Father Substance abuse GRANDPARENT Heart disease Bleeding disorder Other Asthma Sister Decreased vision Maternal Aunt Decreased vision Social History Smoking/Tobacco Use Status: Never Smoking risk assessment performed?: Yes Alcohol Intake: never Drug use: Daily Substance use type: marijuana Do you feel safe at home: Yes Do you feel safe in your relationship?: Yes Exam Narrative Exam Narrative: Awake alert oriented x3, mild distress. Patient was actually sleeping when I walked into the room. Cooperative Normocephalic atraumatic PERRL EOMI MMM anicteric Supple neck Respiratory normal work of breathing Cardiac normal cap refill Neuro cranial nerves II to XII grossly intact. Negative cerebellar Skin no rashes Psych adequate mood and affect. Mildly anxious Course Vital Signs Vital signs: Vital Signs Temperature 36.9 C 11/05/22 07:02 Pulse 71 11/05/22 07:02 Respiratory Rate 18 11/05/22 07:02 Blood Pressure 127/87 11/05/22 07:02 Pulse Oximetry 98 11/05/22 07:02 Temperature 36.9 C 11/05/22 07:02 Temperature Source Oral 11/05/22 07:02 Pulse 71 11/05/22 07:02 Respiratory Rate 18 11/05/22 07:02 Respiratory Effort Normal, Non-Labored 11/05/22 07:06 Blood Pressure 127/87 11/05/22 07:02 Blood Pressure Position Sitting 11/05/22 07:02 Pulse Oximetry 98 11/05/22 07:02 Oxygen Delivery Method Room Air 11/05/22 07:02 Oxygen Flow Rate 0 11/05/22 07:02 Pain Level 6 11/05/22 07:05
[2022-11-05] MEDS: Normal Saline 1,000 ML 1000 ML IV (07:45)
[2022-11-05] MEDS: LORazepam 2 MG/ML VIAL 0.5 MG IVP (07:51)
[2022-11-05] MEDS: Ketorolac 30 MG/ML VIAL IVP (07:53)
[2022-11-05] MEDS: Metoclopramide 10 MG/2 ML VIAL IVP (07:55)
[2022-11-05] MEDS: MAGNESIUM SULFATE 1 GM/100 ML BAG IVPB (07:57)
--- NOTE | 2022-11-05 08:12 | NUR.NOTE ---
pt referred to new PCP to establish care, given to Care Management - EDNursing Note:
[2022-11-05 08:47] VITALS: BP 123/71; PULSE 60; RESP 19; TEMP 36.6; O2SAT 97
--- NOTE | 2022-11-05 10:34 | NUR.NOTE ---
pipe found in room after pt left given to charge nurse Nursing Note:
== END 2022-11-05 09:04 | disposition home or self-care (01) ==
LOC: ER 09:15
PROVIDERS: Emergency Provider Emergency Medicine
DX: G43.909 Migraine, unspecified, not intractable, without status migrainosus (principal)
CPT/HCPCS: 96361; 96365; 96375; 99284; J1885; J2060; J2765; J3475

== ENCOUNTER 2023-01-29 12:23 | Outpatient (REF) | payer MEDICAID, SELFPAY | END 2023-01-29 12:24 | disposition home or self-care (01) | LOC: LBN 12:23 | PROVIDERS: Visit Provider Physician Assistant Medical | DX: J02.9 Acute pharyngitis, unspecified (principal) | CPT/HCPCS: 87070 ==

== ENCOUNTER 2023-01-31 13:19 | Emergency (ER) | payer MEDICAID, SELFPAY ==
[2023-01-31 13:23] VITALS: BP 147/68; PULSE 70; RESP 20; TEMP 36.6; O2SAT 99
--- NOTE | 2023-01-31 13:30 | DI.RAD_ITS ---
Exam(s) XR CHEST 2V PA LATERAL EXAM: XR CHEST 2V PA LATERALz CLINICAL HISTORY: cough, congestion, r/o pneumonia TECHNIQUE: 2D digital imaging was performed. COMPARISON: CR,XR XR CHEST 2V PA LATERAL from 11/23/2019 FINDINGS: HEART: Normal size. Aorta: Not dilated. PULMONARY VASCULATURE: Normal. LUNGS: Clear. PLEURAL SPACE: No pleural effusion or pneumothorax. BONE:Unremarkable for age. IMPRESSION: No acute abnormality. DATA REPOSITORY: RADIATION DOSE DELIVERED:
--- NOTE | 2023-01-31 13:56 | ED.GENADUL_ITS ---
Discharge Plan Disposition Patient Disposition: Home Condition: Stable Discharge Details Clinical Impression: Viral URI with cough Primary Care Provider: None,None ED Provider: Radha Napoles Home Meds and New Rx's Prescriptions: New prednisone 20 mg tablet See Rx Instructions .ROUTE .COMPLEX Qty: 18 0RF Rx Instructions: Take 3 tabs daily for 3 days, then 2 tabs daily for 3 days, then 1 tab daily for 3 days. benzonatate 100 mg capsule 100 mg PO TID PRN (Reason: cough) Qty: 10 0RF albuterol sulfate 90 mcg/actuation HFA aerosol inhaler 2 puff inhalation Q6H PRN (Reason: shortness of breath or wheezing) Qty: 8.5 0RF amoxicillin-pot clavulanate 875-125 mg tablet 1 tab PO BID 10 Days Qty: 20 0RF No Action lidocaine HCl [Lidocaine Viscous] 2 % solution 1 applic mucous membrane BID PRNQty: 50 0RF Discharge Instructions Instructions: Upper Respiratory Infection (ED), Acute Cough (ED) Additional Instructions: Your COVID, influenza and RSV tests today are negative. Your chest x-ray showed no evidence of acute disease. Your symptoms could be due to a viral sinus infection, viral upper respiratory infection, or a viral bronchitis. Viral illnesses can progress and worsen and develop into a bacterial infection so continue to monitor for worsening of your symptoms including fever, green nasal discharge or green sputum. Drink plenty of fluids and get plenty of rest. Alternate tylenol and motrin as needed and directed for pain. Prescriptions for oral steroids, oral cough medication, oral antibiotics and an inhaler have been sent electronically to your pharmacy. Start taking the oral steroids tomorrow. Take the oral cough medication and use the inhaler as needed and directed. You can hold on taking the antibiotics at this time. If your symptoms do not improve or worsen over the next few days, you can start the oral antibiotics. Start taking an [id number] pseudoephedrine as needed and directed for nasal congestion. Follow-up with your primary care doctor in 1 week. Return to the emergency department with any worsening or new concerning symptoms. Discharge Data Discharge Date/Time-TO BE ENTERED AT DEPARTURE: 01/31/23 16:59 Discharge Physician: Radha Napoles Medical Decision Making 22-year-old male with a history of occasional cigar smoking and asthma presents with nasal congestion, clear nasal discharge, sore throat, cough with clear sputum and intermittent shortness of breath for the past week. Patient coughing frequently during exam. He otherwise feels comfortable and nontoxic and is speaking in full sentences. His TMs are dull bilaterally but without erythema or drainage. His posterior oropharynx is erythematous but without exudates or peritonsillar abscess and uvula is midline. He has no drooling, trismus or submandibular swelling. His breath sounds are diminished without but there is no wheezing or rhonchi. He has no sinus tenderness. Differential diagnosis includes sinus infection, viral URI with cough, asthma exacerbation, bronchitis. A fluvid was obtained on arrival and negative. Chest x-ray negative for acute disease. We will give patient a DuoNeb and a dose of oral steroids. Discussed with patient that I do not see an indication for antibiotics at this time but will treat with a course of steroids, cough medication and given albuterol inhaler. Discussed that I will send a prescription for antibiotics to his pharmacy if his symptoms do not improve or worsen. We will also send home with 2 doses of Robitussin with codeine. Advised to follow up with the primary care doctor for re-evaluation. Usual and customary return precautions given prior to discharge. Imaging Data Radiologic Study: Radiologist's impression: XR CHEST 2V PA ? LATERAL CLINICAL HISTORY:? cough, congestion, r/o pneumonia TECHNIQUE:? 2D digital imaging was performed. COMPARISON:? CR,XR XR CHEST 2V PA ? LATERAL from 11/23/2019 FINDINGS: HEART: Normal size.? Aorta: Not dilated. PULMONARY VASCULATURE: Normal. LUNGS: Clear. ? PLEURAL SPACE: No pleural effusion or pneumothorax. BONE:Unremarkable for age.? IMPRESSION: No acute abnormality.? HPI General Mode of arrival: ambulatory . Date/Time Provider Initiated Documentation: 01/31/23 13:25 . Limitations to Documentation: no limitations . Information obtained by: patient . HPI Narrative: Patient is a 22-year-old male with a history of cigar smoking and asthma who presents with nasal congestion, clear rhinorrhea, sore throat, cough with clear sputum and intermittent shortness of breath for the past week. Patient states he was seen at urgent care recently and had a negative COVID test and was given 1 dose of steroids. He states he has been taking DayQuil and NyQuil without relief. He states his throat pain occurs only with coughing and that is bothering him the most. He has been able to eat and drink. He admits to a fever of 102 a few days ago. Patient states he has not taken any Motrin today. Patient denies any green rhinorrhea or green sputum. He does admit to decreased hearing bilaterally but denies any ear discharge. Related Data Home Medications Medication Instructions Recorded Confirmed albuterol sulfate 90 mcg/actuation 2 puff inhalation Q6H PRN 01/31/23 01/31/23 aerosol inhaler shortness of breath or wheezing #8.5 grams amoxicillin 875 mg-potassium 1 tab PO BID 10 days #20 tabs 01/31/23 01/31/23 clavulanate 125 mg tablet benzonatate 100 mg capsule 100 mg PO TID PRN cough #10 caps 01/31/23 01/31/23 lidocaine HCl 2 % mucosal solution 1 applic mucous membrane BID PRN 01/31/23 (Lidocaine Viscous) #50 mL prednisone 20 mg tablet See Rx Instructions .Route 01/31/23 01/31/23 .COMPLEX #18 tabs Previous Rx's Medication Instructions Recorded albuterol sulfate 90 mcg/actuation 2 puff inhalation Q6H PRN 01/31/23 aerosol inhaler shortness of breath or wheezing #8.5 grams amoxicillin 875 mg-potassium 1 tab PO BID 10 days #20 tabs 01/31/23 clavulanate 125 mg tablet benzonatate 100 mg capsule 100 mg PO TID PRN cough #10 caps 01/31/23 lidocaine HCl 2 % mucosal solution 1 applic mucous membrane BID PRN 01/31/23 (Lidocaine Viscous) #50 mL prednisone 20 mg tablet See Rx Instructions .Route 01/31/23 .COMPLEX #18 tabs Allergies Allergy/AdvReac Type Severity Reaction Status Date / Time orange Allergy Skin Rash Unverified 01/31/23 21:42 General Stated Complaint: RespSymp STAR: 3 Review of Systems All systems reviewed & are unremarkable except as noted in HPI and below Constitutional Constitutional: Reports as per HPI, Denies chills and Reports fever(s) Eyes Eyes: Denies blurry vision ENT Ears, Nose, Mouth, and Throat: Denies dizziness, Reports nasal congestion, Reports sore throat and Denies throat swelling Cardiovascular Cardiovascular: Denies chest pain and Reports dyspnea Respiratory Respiratory: Reports cough and Reports dyspnea Gastrointestinal Gastrointestinal: Denies abdominal pain, Denies diarrhea and Denies vomiting Genitourinary Genitourinary: Denies hematuria and Denies dysuria Musculoskeletal Musculoskeletal: Denies back pain and Denies numbness Integumentary/Breasts Skin/Breast: Denies lesions and Denies rash Neurologic Neurologic: Denies dizziness, Denies localized weakness and Denies numbness Allergic/Immunologic Allergic/Immunologic: Denies throat swelling PFSH All Active Problems (Updated 01/31/23 @ 22:05 by Otto Butler MD) Viral URI with cough (Acute) Ganglion cyst of volar aspect of left wrist (Acute) Sleep trouble (Chronic 06/07/16) Childhood overweight, BMI 85-94.9 percentile (Chronic 06/07/16) Migraine (Chronic 07/02/14) Failed vision screen (Chronic 07/02/14) R 20/80, L 20/60 Medical History (Updated 01/31/23 @ 22:05 by Otto Butler MD) Concussion Reports at age 12 he struck his head on the bottom of the pool and was symptomatic for a few weeks afterwards Surgical History No significant past surgical history Family History Mother Migraine Decreased vision Father Substance abuse GRANDPARENT Heart disease Bleeding disorder Other Asthma Sister Decreased vision Maternal Aunt Decreased vision Social History Smoking/Tobacco Use Status: Current-Occasional Tobacco Type: cigars Per week: 2 Smoking risk assessment performed?: Yes Alcohol Intake: never Drug use: Daily Substance use type: marijuana Do you feel safe at home: Yes Do you feel safe in your relationship?: Yes Exam Const General: cooperative and no acute distress Orientation: alert, awake and oriented x3 HENMT Head: normal to inspection Ears: hearing grossly normal bilaterally, external ears normal and TM abnormal dull bilaterally; not erythematous General nose exam: external nose normal Face and sinus: normal facial exam Mouth: oral mucosae normal Throat: posterior oropharynx normal, uvula midline and posterior oropharynx abnormal erythema; no exudates Eyes General: appearance normal, both eyes and all related structures Pupils: PERRL EOM: EOM intact bilaterally Neck Neck: normal visual inspection and No submandibular swelling Lymphatic: no lymphadenopathy noted Chest Chest: normal inspection of the chest and no tenderness Resp Effort & Inspection: normal respiratory effort and able to speak in complete sentences Auscultation: diminished lung sounds bilaterally throughout Cardio Rate: regular rate Rhythm: regular rhythm GI Inspection: normal to inspection Palpation: soft, not firm, not rigid and nontender Auscultation: normal bowel sounds Male General Exam: Yes normal external exam Back/Spine/Pelvis Thoracic/Lumbar Spine: thoracic and lumbar spine normal to inspection Pelvis: no pain with anterior-posterior compression Skin General skin exam: no rashes or lesions noted Neuro General: patient alert, patient awake and patient oriented x3 Cognition: normal cognition Speech: speech normal Motor: muscle tone normal throughout Sensory Exam: no sensory deficits noted Extrem General: normal to inspection, full ROM, capillary refill normal, no calf tenderness bilaterally and no edema Psych Appearance: grossly normal Mental Status: mental status grossly normal Speech and Movement: speech and movement normal Affect: normal affect Course Vital Signs Vital signs: Vital Signs Temperature 97.8 F 01/31/23 13:23 Pulse 70 01/31/23 13:23 Respiratory Rate 20 01/31/23 13:23 Blood Pressure 147/68 H 01/31/23 13:23 Pulse Oximetry 99 01/31/23 13:23 Temperature 97.8 F 01/31/23 13:23 Temperature Source Tympanic 01/31/23 13:23 Pulse 70 01/31/23 13:23 Respiratory Rate 20 01/31/23 13:23 Respiratory Effort Normal, Non-Labored 01/31/23 13:37 Respiratory Depth Normal 01/31/23 13:37 Blood Pressure 147/68 H 01/31/23 13:23 Blood Pressure Position Sitting 01/31/23 13:23 Pulse Oximetry 99 01/31/23 13:23 Oxygen Delivery Method Room Air 01/31/23 13:23 Oxygen Flow Rate 0 01/31/23 13:23
[2023-01-31 14:29] LABS: COVID-19 PCR Negative (Negative); Influenza A PCR Negative (Negative); Influenza B PCR Negative (Negative); RSV PCR Negative (Negative)
[2023-01-31] MEDS: predniSONE 20 MG TAB 60 MG PO (14:29)
[2023-01-31] MEDS: Albuterol/Ipratropium 3 ML UPD VIAL UPD (14:29)
[2023-01-31 14:32] LABS: Source Nasopharynx
[2023-01-31 15:00] VITALS: BP 125/74; PULSE 85; RESP 18; O2SAT 97
[2023-01-31] MEDS: guaiFENesin/CODEINE PHOSPHATE 10 ML CUP 20 ML PO (15:00)
== END 2023-01-31 16:59 | disposition home or self-care (01) ==
PROVIDERS: Emergency Provider Physician Assistant
DX: R07.9 Chest pain, unspecified (principal); J06.9 Acute upper respiratory infection, unspecified; J45.909 Unspecified asthma, uncomplicated; F17.290 Nicotine dependence, other tobacco product, uncomplicated
CPT/HCPCS: 87637; 99284; 71046; 99283; J7512; J7620

== ENCOUNTER 2023-01-31 21:35 | Emergency (ER) | payer MEDICAID, SELFPAY ==
[2023-01-31 21:39] VITALS: BP 139/76; PULSE 98; RESP 16; TEMP 36.7; O2SAT 97
--- NOTE | 2023-01-31 21:52 | ED.GENADUL_ITS ---
Discharge Plan Disposition Patient Disposition: Home Condition: Stable Discharge Details Clinical Impression: Viral URI with cough Primary Care Provider: Unknown,Unknown ED Provider: Otto Butler Home Meds and New Rx's Prescriptions: Continued prednisone 20 mg tablet See Rx Instructions .ROUTE .COMPLEX Qty: 18 0RF Rx Instructions: Take 3 tabs daily for 3 days, then 2 tabs daily for 3 days, then 1 tab daily for 3 days. benzonatate 100 mg capsule 100 mg PO TID PRN (Reason: cough) Qty: 10 0RF albuterol sulfate 90 mcg/actuation HFA aerosol inhaler 2 puff inhalation Q6H PRN (Reason: shortness of breath or wheezing) Qty: 8.5 0RF amoxicillin-pot clavulanate 875-125 mg tablet 1 tab PO BID 10 Days Qty: 20 0RF Discharge Instructions Instructions: Acute Cough (ED) Additional Instructions: if not better within a week taking the earlier prescribed medications follow up with your primary care provider you can use the lidocaine every 12 hours as needed, also use tylenol and ibuprofen, follow dosing instructions on packaging if you feel more ill or have severe worsening symptoms return to the emergency department Medical Decision Making 22 yo male with no significant pmhx comes in with continued cough and sore throat from coughing. Was seen earlier in the day, given an inhaler and prednisone and also augmentin, had negative cxr and fluvid testing. He went home and did admit to using marijuana and has had a coughing fit since so came here. He denies fevers, no chest pain, states he does feel short of breath. He arrives stable with intermittent dry cough. He states his posterior pharynx is irritated. His posterior pharynx is mildly erythematous, midline uvula, no submandibular swelling and no restricted neck movements. Clear lungs, no murmurs, no jvd. No findings on exam to suggest epiglotitis, retropharyngeal abscess or peritonsilar abscess. Given negative fluvid and xray earlier do not feel testing indicated. He has no hypoxia or tachycardia and no evidence of dvt on exam. Clear lung sounds so doubt asthma. His biggest complaint is it hurts his throat when he swallows. Will trial lidocaine and reassess. Differential Diagnosis Differential Diagnosis: uri, sinusitis, asthma Medical Records Medical records reviewed: Yes I reviewed the patient's medical records. HPI General Mode of arrival: ambulatory . Date/Time Provider Initiated Documentation: 01/31/23 21:39 . Limitations to Documentation: no limitations . Information obtained by: patient . History of Present Illness 22 year old M presents to the emergency department with the chief complaint of cough and sore throat, described as moderate, Patient started experiencing this week(s) (1) and it has been constant. No relieving factors improve symptom(s), No exacerbating factors reported . Patient notes denies fever/chills. Patient did receive the following treatments prior to arrival, none Related Data Home Medications Medication Instructions Recorded Confirmed albuterol sulfate 90 mcg/actuation 2 puff inhalation Q6H PRN 01/31/23 01/31/23 aerosol inhaler shortness of breath or wheezing #8.5 grams amoxicillin 875 mg-potassium 1 tab PO BID 10 days #20 tabs 01/31/23 01/31/23 clavulanate 125 mg tablet benzonatate 100 mg capsule 100 mg PO TID PRN cough #10 caps 01/31/23 01/31/23 prednisone 20 mg tablet See Rx Instructions .Route 01/31/23 01/31/23 .COMPLEX #18 tabs Previous Rx's Medication Instructions Recorded albuterol sulfate 90 mcg/actuation 2 puff inhalation Q6H PRN 01/31/23 aerosol inhaler shortness of breath or wheezing #8.5 grams amoxicillin 875 mg-potassium 1 tab PO BID 10 days #20 tabs 01/31/23 clavulanate 125 mg tablet benzonatate 100 mg capsule 100 mg PO TID PRN cough #10 caps 01/31/23 prednisone 20 mg tablet See Rx Instructions .Route 01/31/23 .COMPLEX #18 tabs Allergies Allergy/AdvReac Type Severity Reaction Status Date / Time orange Allergy Skin Rash Unverified 01/31/23 21:42 General Stated Complaint: RespSymp STAR: 4 Review of Systems All systems reviewed & are unremarkable except as noted in HPI and below Constitutional Constitutional: Denies chills and Denies fever(s) Cardiovascular Cardiovascular: Denies chest pain Respiratory Respiratory: Reports cough Gastrointestinal Gastrointestinal: Denies abdominal pain, Denies nausea and Denies vomiting Integumentary/Breasts Skin/Breast: Denies rash PFSH All Active Problems (Updated 01/31/23 @ 22:05 by Otto Butler MD) Viral URI with cough (Acute) Ganglion cyst of volar aspect of left wrist (Acute) Sleep trouble (Chronic 06/07/16) Childhood overweight, BMI 85-94.9 percentile (Chronic 06/07/16) Migraine (Chronic 07/02/14) Failed vision screen (Chronic 07/02/14) R 20/80, L 20/60 Medical History (Updated 01/31/23 @ 22:05 by Otto Butler MD) Concussion Reports at age 12 he struck his head on the bottom of the pool and was sy mptomatic for a few weeks afterwards Surgical History No significant past surgical history Family History Mother Migraine Decreased vision Father Substance abuse GRANDPARENT Heart disease Bleeding disorder Other Asthma Sister Decreased vision Maternal Aunt Decreased vision Social History Smoking/Tobacco Use Status: Current-Occasional Tobacco Type: cigars Per week: 2 Smoking risk assessment performed?: Yes Alcohol Intake: never Drug use: Daily Substance use type: marijuana Do you feel safe at home: Yes Do you feel safe in your relationship?: Yes Exam Const General: no acute distress Orientation: alert HENMT Head: normal to inspection Ears: external ears normal General nose exam: external nose normal Mouth: moist mucous membranes Eyes General: appearance normal, both eyes and all related structures Neck Neck: normal visual inspection Resp Effort & Inspection: normal respiratory effort and able to speak in complete sentences Auscultation: clear to auscultation bilaterally Cardio Rate: regular rate Skin General skin exam: no rashes or lesions noted Neuro General: patient alert and patient oriented x3 Extrem General: normal to inspection Psych Mental Status: mental status grossly normal Course Vital Signs Vital signs: Vital Signs Temperature 36.7 C 01/31/23 21:39 Pulse 98 H 01/31/23 21:39 Respiratory Rate 16 01/31/23 21:39 Blood Pressure 139/76 01/31/23 21:39 Pulse Oximetry 97 01/31/23 21:39 Temperature 36.7 C 01/31/23 21:39 Temperature Source Tympanic 01/31/23 21:39 Pulse 98 H 01/31/23 21:39 Respiratory Rate 16 01/31/23 21:39 Respiratory Effort Normal, Non-Labored 01/31/23 21:46 Blood Pressure 139/76 01/31/23 21:39 Blood Pressure Position Sitting 01/31/23 21:39 Pulse Oximetry 97 01/31/23 21:39 Oxygen Delivery Method Room Air 01/31/23 21:39 Oxygen Flow Rate 0 01/31/23 21:39
[2023-01-31] MEDS: Lidocaine 2% Viscous 15 ML CUP PO (22:00)
--- NOTE | 2023-01-31 23:22 | NUR.NOTE ---
@0139-Per house sup there is no more viscous lidocaine in hospital it is on backorder. Md Luzma made aware and asked to send prescription over to outpt pharmacy. Per Md Luzma he will send it.
--- NOTE | 2023-01-31 23:24 | W.EDPROG ---
Date of service: 01/31/23 Time of Service: 23:25 Medical Decision Making This patient was being discharged at the start of my shift. He was scheduled to receive viscous lidocaine in the ED in the setting of a viral URI diagnosed by his original provider. Unfortunately we did not have access to viscous lidocaine so I sent a prescription for viscous lidocaine into his pharmacy. Discharge Plan Disposition Patient Disposition: Home Condition: Stable Discharge Details Clinical Impression: Viral URI with cough Primary Care Provider: Unknown,Unknown ED Provider: Otto Butler [place] Meds and New Rx's Prescriptions: New lidocaine HCl [Lidocaine Viscous] 2 % solution 1 applic mucous membrane BID PRNQty: 50 0RF Continued prednisone 20 mg tablet See Rx Instructions .ROUTE .COMPLEX Qty: 18 0RF Rx Instructions: Take 3 tabs daily for 3 days, then 2 tabs daily for 3 days, then 1 tab daily for 3 days. benzonatate 100 mg capsule 100 mg PO TID PRN (Reason: cough) Qty: 10 0RF albuterol sulfate 90 mcg/actuation HFA aerosol inhaler 2 puff inhalation Q6H PRN (Reason: shortness of breath or wheezing) Qty: 8.5 0RF amoxicillin-pot clavulanate 875-125 mg tablet 1 tab PO BID 10 Days Qty: 20 0RF Discharge Instructions Instructions: Acute Cough (ED) Additional Instructions: if not better within a week taking the earlier prescribed medications follow up with your primary care provider you can use the lidocaine every 12 hours as needed, also use tylenol and ibuprofen, follow dosing instructions on packaging if you feel more ill or have severe worsening symptoms return to the emergency department
== END 2023-01-31 23:23 | disposition home or self-care (01) ==
PROVIDERS: Emergency Provider Emergency Medicine
DX: J06.9 Acute upper respiratory infection, unspecified (principal)
CPT/HCPCS: 99282; 99283

== ENCOUNTER 2023-06-30 04:55 | Emergency (ER) | payer MEDICAID, SELFPAY | END 2023-06-30 09:26 | disposition home or self-care (01) | PROVIDERS: Emergency Provider Emergency Medicine | DX: J01.90 Acute sinusitis, unspecified (principal) | CPT/HCPCS: 99283; 99284 ==

== ENCOUNTER 2023-07-05 13:51 | Outpatient (REF) | payer MEDICAID, SELFPAY ==
[2023-07-05 14:25] LABS: Source Nasal/Nares
[2023-07-05 16:06] LABS: COVID-19 PCR Negative (Negative)
[2023-07-05 16:20] LABS: ALT 42 U/L (16-63); AST 16 U/L (15-37); Albumin 3.9 g/dL (3.4-5.0); Alkaline Phosphatase 80 U/L (46-116); Anion Gap 8.9 mmol/L (3-11); BUN 13 mg/dL (7-18); Bilirubin, Total 0.3 mg/dL (0.2-1.0); CO2 25.1 mmol/L (21.0-32.0); CREATININE 0.9 mg/dL (0.70-1.30); Chloride 104 mmol/L (98-107); Estimated GFR 123.07 (mL/min/1.73m2); Glucose 94 mg/dL (74-106); Potassium 3.8 mmol/L (3.5-5.1); Sodium 138 mmol/L (136-145); Total Protein 6.9 g/dL (6.4-8.2)
== END 2023-07-05 13:52 | disposition home or self-care (01) ==
LOC: LBN 13:51
PROVIDERS: Visit Provider Nurse Practitioner Family
DX: R50.9 Fever, unspecified (principal); Z20.822 Contact with and (suspected) exposure to COVID-19
CPT/HCPCS: 80053; 87635

== ENCOUNTER 2023-08-09 17:33 | Emergency (ER) | payer MEDICAID, SELFPAY ==
[2023-08-09 17:36] VITALS: BP 133/81; PULSE 73; RESP 18; TEMP 36.4; O2SAT 97
[2023-08-09 17:40] VITALS: RESP 18
--- NOTE | 2023-08-09 17:41 | W.ED.GENAD ---
Discharge Plan Disposition Patient Disposition: Home Discharge Details Clinical Impression: Viral URI with cough Primary Care Provider: Ame,[facility] ED Provider: Stephen Segal Home Meds and New Rx's Prescriptions: New naproxen 500 mg tablet 500 mg PO BID PRNQty: 7 0RF promethazine-DM 6.25-15 mg/5 mL syrup 5 ml PO Q6H PRNQty: 118 0RF cetirizine 10 mg tablet 10 mg PO DAILY PRNQty: 7 0RF fluticasone propionate [Flonase Allergy Relief] 50 mcg/actuation spray,suspension 1 spray intranasal DAILY Qty: 16 0RF Rx Instructions: administer into each nostril benzonatate 100 mg capsule 100 mg PO BID PRNQty: 7 0RF Continued albuterol sulfate 90 mcg/actuation HFA aerosol inhaler 2 puff inhalation Q6H PRN (Reason: shortness of breath or wheezing) Qty: 8.5 0RF Discontinued prednisone 20 mg tablet See Rx Instructions .ROUTE .COMPLEX Qty: 18 0RF Rx Instructions: Take 3 tabs daily for 3 days, then 2 tabs daily for 3 days, then 1 tab daily for 3 days. benzonatate 100 mg capsule 100 mg PO TID PRN (Reason: cough) Qty: 10 0RF lidocaine HCl [Lidocaine Viscous] 2 % solution 1 applic mucous membrane BID PRNQty: 50 0RF Discharge Instructions Instructions: Acute Cough (ED) Additional Instructions: You were seen in the emergency department for your cough. You received a nebulization treatment. You are receiving prescriptions and have been sent to the pharmacy for your cough. Request has been sent for you to have a primary care provider. As we discussed, please return to the emergency department if develop fevers worsening shortness of breath or any chest pain. HPI General Date/Time Provider Initiated Documentation: 08/09/23 17:33. HPI Narrative: MDM This is an overall very well appearing afebrile and not tachycardic 23-year-old male with cough most consistent with viral URI but not exacerbation of reactive airway disease given no prolonged expiratory phase and no significant wheezes. Patient requested a nebulizer treatment so I gave him 1 dose of albuterol. Given no significant wheezes I will not treat him with steroids as he is not having an exacerbation of his reactive airway disease. He is not hypoxic and has reassuring vitals. He is having no chest pain to suggest ACS nor PE. Given no fevers and no productive sputum I am not concerned for pneumonia. As result I did not obtain chest x-ray. Given no chest pain and no lower extremity swelling not concerned for any heart failure. Given no sore throat I am not concerned for strep pharyngitis nor retropharyngeal abscess nor peritonsillar abscess. No pain out of proportion to suggest necrotizing soft tissue infection. In the absence of chest pain I am not concerned for aortic dissection. Patient is speaking in 7-8 word sentences with no stridor so I do not feel that he requires ongoing monitoring in the emergency department. I have sent medicines in to his pharmacy to treat his viral URI with cough: Naproxen, promethazine?DMX cough syrup, cetirizine, Flonase, Tessalon Perles. I have asked health community case manager Nathalie to have the patient seen by primary care provider in the next 1 to 2 weeks in the setting of his cough reported asthma. Chronic conditions affecting the care of the patient: Reactive airway disease History obtained from an outside historian: N/A External record review: [facility] [place] EMR Medications: Cetirizine Tessalon Perles and naproxen along with albuterol Social determinants of health affecting disposition: N/A Management discussed with: N/A Treatment/interventions considered: Steroids but deferred given risks of adverse effects Response to therapies provided: Improved symptoms following administration treatment HPI This is a 23-year-old male with history of asthma on outpatient albuterol arrived to the emergency department via private vehicle in the setting of cough. Patient reports that he was recently placed on antibiotics for an upper respiratory tract infection. He complains of mild shortness of breath when he coughs. He notes that his cough is nonproductive. He has had no recent fevers nor ear pain nor throat pain. He says his cough is worse at night when he lies down. He has not been smoking tobacco for the past month but occasionally smokes marijuana. He is trying to quit both of these. He said that he has not taken any falls. He is not having any abdominal pain nausea nor vomiting. He is having no chest pain. He occasionally reports that he coughs so frequently that he feels as if he is going to pass out. Exam General: Well-appearing in no acute distress speaking in complete sentences. Head: Normocephalic, atraumatic. Eye: Extraocular eye movements intact. No conjunctival injection. No scleral icterus. Ear, nose, mouth, throat: Grossly normal inspection. Normal voice, handling secretions normally. Neck: Trachea midline. Cardiovascular: Well-perfused distal extremities. Respiratory: Nonlabored respiration. Patient speaking in 6-7 word sentences. No stridor. No tripoding. No prolonged expiratory phase. No significant wheezes. Mild intermittent cough. Gastrointestinal: Nondistended abdomen. Musculoskeletal: No edema. Moving all 4 extremities spontaneously. Skin: Normal for age and race, grossly normal temperature and turgor. No acute rash. Neurologic: Alert and appropriate, no apparent acute deficits. Psychiatric: Mood and manner are appropriate. Grooming and personal hygiene are appropriate. Related Data Home Medications Medication Instructions Recorded Confirmed albuterol sulfate 90 mcg/actuation 2 puff inhalation Q6H PRN 01/31/23 01/31/23 aerosol inhaler shortness of breath or wheezing #8.5 grams benzonatate 100 mg capsule 100 mg PO BID PRN #7 caps 08/09/23 cetirizine 10 mg tablet 10 mg PO DAILY PRN #7 tabs 08/09/23 fluticasone propionate 50 1 spray intranasal DAILY #16 grams 08/09/23 mcg/actuation nasal spray,suspension (Flonase Allergy Relief) naproxen 500 mg tablet 500 mg PO BID PRN #7 tabs 08/09/23 promethazine-DM 6.25 mg-15 mg/5 mL 5 ml PO Q6H PRN #118 mL 08/09/23 oral syrup Previous Rx's Medication Instructions Recorded albuterol sulfate 90 mcg/actuation 2 puff inhalation Q6H PRN 01/31/23 aerosol inhaler shortness of breath or wheezing #8.5 grams benzonatate 100 mg capsule 100 mg PO BID PRN #7 caps 08/09/23 cetirizine 10 mg tablet 10 mg PO DAILY PRN #7 tabs 08/09/23 fluticasone propionate 50 1 spray intranasal DAILY #16 grams 08/09/23 mcg/actuation nasal spray,suspension (Flonase Allergy Relief) naproxen 500 mg tablet 500 mg PO BID PRN #7 tabs 08/09/23 promethazine-DM 6.25 mg-15 mg/5 mL 5 ml PO Q6H PRN #118 mL 08/09/23 oral syrup Allergies Allergy/AdvReac Type Severity Reaction Status Date / Time orange Allergy Skin Rash Unverified 01/31/23 21:42 General Stated Complaint: SOB STAR: 4 PFSH All Active Problems (Updated 08/09/23 @ 17:59 by Stephen Segal MD) Viral URI with cough (Acute) Ganglion cyst of volar aspect of left wrist (Acute) Sleep trouble (Chronic 06/07/16) Childhood overweight, BMI 85-94.9 percentile (Chronic 06/07/16) Migraine (Chronic 07/02/14) Failed vision screen (Chronic 07/02/14) R 20/80, L 20/60 Medical History (Updated 08/09/23 @ 17:59 by Stephen Segal MD) Concussion Reports at age 12 he struck his head on the bottom of the pool and was symptomatic for a few weeks afterwards Surgical History No significant past surgical history Family History Mother Migraine Decreased vision Father Substance abuse GRANDPARENT Heart disease Bleeding disorder Other Asthma Sister Decreased vision Maternal Aunt Decreased vision Social History Smoking/Tobacco Use Status: Current-Occasional Tobacco Type: cigars Per week: 2 Smoking risk assessment performed?: Yes Alcohol Intake: current Alcohol Intake frequency: holidays/special occasions only Drug use: Daily Substance use type: marijuana Do you feel safe at home: Yes Do you feel safe in your relationship?: Yes Course Vital Signs Vital signs: Vital Signs Temperature 36.4 C L 08/09/23 17:36 Pulse 73 08/09/23 17:36 Respiratory Rate 18 08/09/23 17:36 Blood Pressure 133/81 08/09/23 17:36 Pulse Oximetry 97 08/09/23 17:36 Temperature 36.4 C L 08/09/23 17:36 Temperature Source Oral 08/09/23 17:36 Pulse 73 08/09/23 17:36 Respiratory Rate 18 08/09/23 17:36 Blood Pressure 133/81 08/09/23 17:36 Blood Pressure Position Sitting 08/09/23 17:36 Pulse Oximetry 97 08/09/23 17:36 Oxygen Delivery Method Room Air 08/09/23 17:36 Oxygen Flow Rate 0 08/09/23 17:36 Pain Level 0 08/09/23 17:36
--- NOTE | 2023-08-09 18:07 | NUR.NOTE ---
Referral given to Care Management for needs PCP, for cough, establish care within 2 weeks. Nursing Note:
[2023-08-09 18:14] VITALS: RESP 5
[2023-08-09] MEDS: Cetirizine 10 MG TAB PO (18:14)
[2023-08-09] MEDS: Albuterol 2.5 MG/3 ML INH SOLN VIAL UPD (18:14)
[2023-08-09] MEDS: Benzonatate 100 MG CAP PO (18:14)
[2023-08-09] MEDS: Naproxen 250 MG TAB 500 MG PO (18:14)
== END 2023-08-09 18:29 | disposition home or self-care (01) ==
PROVIDERS: Emergency Provider Emergency Medicine
DX: J06.9 Acute upper respiratory infection, unspecified (principal); R05.9 Cough, unspecified
CPT/HCPCS: 94640; 99283; 99284; J7613

== ENCOUNTER 2023-10-26 02:51 | Emergency (ER) | payer MEDICAID, SELFPAY ==
[2023-10-26 02:54] VITALS: BP 152/83; PULSE 52; RESP 16; TEMP 36.5; O2SAT 99
--- NOTE | 2023-10-26 03:16 | W.ED.GENAD ---
HPI General Date/Time Provider Initiated Documentation: 10/26/23 03:01. HPI Narrative: 23-year-old male with a past medical history of dental caries presents today for right upper dental pain. Patient states that pain began a day or so ago, he went to his dentist, and has a root canal scheduled for later this week, unfortunately pain has been severe and he has not been able to sleep at all. He has been taking Tylenol and Motrin without any significant improvement. He denies any difficulty breathing or drinking. He denies any headache or neck pain. No other complaints at this time. He is currently taking amoxicillin as prescribed by the dentist. Related Data Home Medications Medication Instructions Recorded Confirmed albuterol sulfate 90 mcg/actuation 2 puff inhalation Q6H PRN 01/31/23 01/31/23 aerosol inhaler shortness of breath or wheezing #8.5 grams benzonatate 100 mg capsule 100 mg PO BID PRN #7 caps 08/09/23 cetirizine 10 mg tablet 10 mg PO DAILY PRN #7 tabs 08/09/23 fluticasone propionate 50 1 spray intranasal DAILY #16 grams 08/09/23 mcg/actuation nasal spray,suspension (Flonase Allergy Relief) naproxen 500 mg tablet 500 mg PO BID PRN #7 tabs 08/09/23 promethazine-DM 6.25 mg-15 mg/5 mL 5 ml PO Q6H PRN #118 mL 08/09/23 oral syrup Previous Rx's Medication Instructions Recorded albuterol sulfate 90 mcg/actuation 2 puff inhalation Q6H PRN 01/31/23 aerosol inhaler shortness of breath or wheezing #8.5 grams benzonatate 100 mg capsule 100 mg PO BID PRN #7 caps 08/09/23 cetirizine 10 mg tablet 10 mg PO DAILY PRN #7 tabs 08/09/23 fluticasone propionate 50 1 spray intranasal DAILY #16 grams 08/09/23 mcg/actuation nasal spray,suspension (Flonase Allergy Relief) naproxen 500 mg tablet 500 mg PO BID PRN #7 tabs 08/09/23 promethazine-DM 6.25 mg-15 mg/5 mL 5 ml PO Q6H PRN #118 mL 08/09/23 oral syrup Allergies Allergy/AdvReac Type Severity Reaction Status Date / Time orange Allergy Skin Rash Unverified 01/31/23 21:42 General Stated Complaint: DentalOral STAR: 4 Review of Systems All systems reviewed & are unremarkable except as noted in HPI and below Exam Narrative Exam Narrative: 1.Const: Well-nourished, Well-developed, appearing stated age 2.Eyes: PERRL, no conjunctival injection, and symmetrical lids. 3.ENT: Atraumatic external nose and ears. Moist MM. Neck: Symmetric, trachea midline, No thyromegaly. No evidence of severe dental carry, periapical abscess or [place] angina. No evidence of oropharyngeal compromise. 4.CVS: +S1/S2, No murmurs or gallops. Peripheral pulses 2+ and equal in all extremities. Brisk capillary refill in all extremities. 5.RESP: Unlabored respiratory effort. Clear to auscultation bilaterally. No wheezes rales or rhonchi 6.GI: Soft, Nontender/Nondistended, No hepatosplenomegaly. No guarding or rebound. 7.MSK: Normocephalic/Atraumatic, Extremities w/o deformity or ttp No cyanosis or clubbing, Normal movement of all extremities 8.Skin: Warm, Dry. No rashes or lesions. 9.Neuro: deputy general counsel II-XII grossly intact. Sensation grossly intact, no focal neurologic deficits. 10.Psych: (AAO) x3. Appropriate mood and affect Course Vital Signs Vital signs: Vital Signs Temperature 36.5 C 10/26/23 02:54 Pulse 52 L 10/26/23 02:54 Respiratory Rate 16 10/26/23 02:54 Blood Pressure 152/83 H 10/26/23 02:54 Pulse Oximetry 99 10/26/23 02:54 Temperature 36.5 C 10/26/23 02:54 Pulse 52 L 10/26/23 02:54 Respiratory Rate 16 10/26/23 02:54 Respiratory Effort Normal 10/26/23 02:58 Blood Pressure 152/83 H 10/26/23 02:54 Pulse Oximetry 99 10/26/23 02:54 Oxygen Delivery Method Room Air 10/26/23 02:54 Oxygen Flow Rate 0 10/26/23 02:54 Pain Level 5 10/26/23 02:58 Procedures Nerve Block Nerve Block 1: Time out performed: Yes Local Anesthetic: Bupivicaine 0.25% Amount of anesthesia used (mL): 6 Side: right Intraoral Nerve Block: superior alveolar Procedure Successful: Yes Patient Tolerated Procedure: well and no complications Complications: none Medical Decision Making 23-year-old male with a past medical history of dental caries presents today for right upper dental pain. Patient states that pain began a day or so ago, he went to his dentist, and has a root canal scheduled for later this week, unfortunately pain has been severe and he has not been able to sleep at all. He has been taking Tylenol and Motrin without any significant improvement. He denies any difficulty breathing or drinking. He denies any headache or neck pain. No other complaints at this time. He is currently taking amoxicillin as prescribed by the dentist. Exam demonstrates well-appearing male, minimal dental carry in the posterior right upper molar. No evidence of periapical abscess, peritonsillar abscess, Primo's angina or other abnormality. Discussed risk and benefits of dental block, patient consented to procedure. Procedure performed without complication. Patient had complete resolution of pain. Patient feels well and will be discharged home. Recommend continued NSAIDs at home. Discussed red flags for which to return. I have extensively reviewed the treatment plan and discharge instructions with the patient. I have addressed all patient concerns at this time. The patient was made aware of what symptoms to monitor for that would warrant a return to the emergency department. Discussed the plan with the patient, they demonstrate verbal understanding and agreement with our assessment and plan at this time. The documentation in this chart was dictated using [employer] dictation software. Please excuse any dictation errors. Quality:SDOH Health Related Social Needs: No Data to Display PFSH All Active Problems Pain, dental (Acute) Ganglion cyst of volar aspect of left wrist (Acute) Sleep trouble (Chronic 06/07/16) Childhood overweight, BMI 85-94.9 percentile (Chronic 06/07/16) Migraine (Chronic 07/02/14) Failed vision screen (Chronic 07/02/14) R 20/80, L 20/60 Medical History Concussion Reports at age 12 he struck his head on the bottom of the pool and was symptomatic for a few weeks afterwards Surgical History No significant past surgical history Family History Mother Migraine Decreased vision Father Substance abuse GRANDPARENT Heart disease Bleeding disorder Other Asthma Sister Decreased vision Maternal Aunt Decreased vision Social History Smoking/Tobacco Use Status: Current every day Tobacco Type: cigars Per week: 2 Smoking risk assessment performed?: Yes Alcohol Intake: current Alcohol Intake frequency: holidays/special occasions only Drug use: Daily Substance use type: marijuana Do you feel safe at home: Yes Do you feel safe in your relationship?: Yes Discharge Plan Disposition Patient Disposition: Home Condition: Good Discharge Details Chief Complaint: DentalOral Clinical Impression: Pain, dental Primary Care Provider: Unknown,Unknown ED Provider: Ernie Diallo Meds and New Rx's Prescriptions: No Action albuterol sulfate 90 mcg/actuation HFA aerosol inhaler 2 puff inhalation Q6H PRN (Reason: shortness of breath or wheezing) Qty: 8.5 0RF naproxen 500 mg tablet 500 mg PO BID PRNQty: 7 0RF promethazine-DM 6.25-15 mg/5 mL syrup 5 ml PO Q6H PRNQty: 118 0RF cetirizine 10 mg tablet 10 mg PO DAILY PRNQty: 7 0RF fluticasone propionate [Flonase Allergy Relief] 50 mcg/actuation spray,suspension 1 spray intranasal DAILY Qty: 16 0RF Rx Instructions: administer into each nostril benzonatate 100 mg capsule 100 mg PO BID PRNQty: 7 0RF Discharge Instructions Instructions: Toothache (ED) Additional Instructions: The block we administered should help improve your pain. Please take 800 mg of ibuprofen every 6 hours and 1000 mg of Tylenol every 6 hours to help with the inflammation and pain. These are the maximum doses. Please take the antibiotic as directed to help with the infection in your tooth. Please follow-up closely with your dentist for your scheduled root canal. If you notice any worsening of your symptoms, or any new symptoms such as difficulty swallowing, difficulty breathing, vomiting, diarrhea, fever, chills, shortness of breath, chest pain, numbness, weakness, or fainting , please return immediately to the emergency department for reevaluation. Please follow up with your primary care provider as soon as possible for reassessment and reevaluation. As always, it was a pleasure participating in your medical care today.
== END 2023-10-26 03:32 | disposition home or self-care (01) ==
PROVIDERS: Emergency Provider Student in an Organized Health Care Education/Training Program
DX: R68.84 Jaw pain (principal); K08.89 Other specified disorders of teeth and supporting structures
CPT/HCPCS: 64400; J0665

== ENCOUNTER 2023-11-07 10:23 | Emergency (ER) | payer MEDICAID, SELFPAY ==
[2023-11-07 10:28] VITALS: BP 139/84; PULSE 87; RESP 16; TEMP 36.7; O2SAT 100
--- NOTE | 2023-11-07 10:52 | W.ED.GENAD ---
Discharge Plan Disposition Patient Disposition: Home Discharge Details Clinical Impression: Contusion of hand, right Primary Care Provider: None,None ED Provider: Baldo Rudd Home Meds and New Rx's Prescriptions: No Action albuterol sulfate 90 mcg/actuation HFA aerosol inhaler 2 puff inhalation Q6H PRN (Reason: shortness of breath or wheezing) Qty: 8.5 0RF fluticasone propionate [Flonase Allergy Relief] 50 mcg/actuation spray,suspension 1 spray intranasal DAILY Qty: 16 0RF Rx Instructions: administer into each nostril Discharge Instructions Instructions: Contusion in Adults (ED) Additional Instructions: You may continue to use [id number] pain medication as needed for discomfort. You may apply ice as needed for swelling. Please return to the emergency department for any new or significant worsening symptoms otherwise follow-up with primary care provider if not improving Referrals: Primary Care Provider [Outside] (As needed for reassessment if not improving) Discharge Data Discharge Date/Time-TO BE ENTERED AT DEPARTURE: 11/07/23 12:14 HPI General Mode of arrival: ambulatory. Date/Time Provider Initiated Documentation: 11/07/23 10:47. Limitations to Documentation: no limitations. Information obtained by: patient and RN notes reviewed. History of Present Illness 23 year old M presents to the emergency department with the chief complaint of right hand injury, described as moderate, and is localized to the right and upper extremity. Patient started experiencing this day(s) (1) and it has been constant. No relieving factors improve symptom(s), No exacerbating factors reported . Patient notes no other symptoms.. Patient did receive the following treatments prior to arrival, none Related Data Home Medications Medication Instructions Recorded Confirmed albuterol sulfate 90 mcg/actuation 2 puff inhalation Q6H PRN 01/31/23 11/10/23 aerosol inhaler shortness of breath or wheezing #8.5 grams fluticasone propionate 50 1 spray intranasal DAILY #16 grams 08/09/23 11/10/23 mcg/actuation nasal spray,suspension (Flonase Allergy Relief) Previous Rx's Medication Instructions Recorded albuterol sulfate 90 mcg/actuation 2 puff inhalation Q6H PRN 01/31/23 aerosol inhaler shortness of breath or wheezing #8.5 grams fluticasone propionate 50 1 spray intranasal DAILY #16 grams 08/09/23 mcg/actuation nasal spray,suspension (Flonase Allergy Relief) Allergies Allergy/AdvReac Type Severity Reaction Status Date / Time orange Allergy Skin Rash Unverified 11/10/23 11:24 General Stated Complaint: Orthopedic STAR: 4 Review of Systems Musculoskeletal Musculoskeletal: Reports as per HPI, Reports deformity, Reports arthralgias, Reports joint swelling, Denies limited range of motion, Denies numbness, Reports stiffness and Denies tingling Integumentary/Breasts Skin/Breast: Denies erythema Neurologic Neurologic: Denies numbness and Denies tingling Exam Const General: cooperative, no acute distress and not ill appearing Orientation: alert, awake and oriented x3 HENMT Mouth: moist mucous membranes Resp Effort & Inspection: normal respiratory effort, able to speak in complete sentences and no respiratory distress Cardio Rate: regular rate Rhythm: regular rhythm Pulses: normal peripheral pulses Skin General skin exam: no rashes or lesions noted Neuro General: patient alert, patient awake, patient oriented x3, moves all extremities and no focal motor deficits Sensory Exam: no sensory deficits noted Extrem General: normal exam except as noted Right upper extremity: hand Details: normal capillary refill, neuromotor exam normal, neurosensory exam normal, tenderness Location: of the 3rd digit Location: at the MCP joint, vascular exam Details: radial pulse present and normal capillary refill, swelling Location: of the 3rd digit Location: at the MCP joint and ecchymosis Location: of the 3rd digit Location: at the MCP joint Course Vital Signs Vital signs: Vital Signs Temperature 36.7 C 11/07/23 10:28 Pulse 87 11/07/23 10:28 Respiratory Rate 16 11/07/23 10:28 Blood Pressure 139/84 11/07/23 10:28 Pulse Oximetry 100 11/07/23 10:28 Temperature 36.7 C 11/07/23 10:28 Temperature Source Temporal Artery Scan 11/07/23 10:28 Pulse 87 11/07/23 10:28 Respiratory Rate 16 11/07/23 10:28 Blood Pressure 139/84 11/07/23 10:28 Blood Pressure Position Sitting 11/07/23 10:28 Pulse Oximetry 100 11/07/23 10:28 Oxygen Delivery Method Room Air 11/07/23 10:28 Oxygen Flow Rate 0 11/07/23 10:28 Pain Level 0 11/07/23 10:28 Medical Decision Making Patient presenting to the emergency department for chief complaint of right hand injury. Patient was playing a virtual video game and accidentally punched a chair. Since incident patient has had significant discomfort to the third metacarpal along with bruising and swelling. Patient denies any other injury or trauma, denies any previous hand injury or surgeries, no significant contributing past medical history. Physical exam shows significant swelling tenderness and ecchymosis to the distal aspects of the third metacarpal and proximal finger. Exam is otherwise noncontributory. Will plan on performing radiological imaging for evaluation of hand contusion versus fracture Reviewed radiological imaging along with radiologist interpretation that shows no acute fracture. Discussed conservative management with patient along with return and follow-up precautions. After discussion of diagnosis and plan of care patient has no further needs, questions, or concerns and states clear understanding to return to the emergency department for any worsening symptoms. This documentation was generated using [employer] dictation system, please disregard any oddities of phrase or misspellings. Quality:SDOH Health Related Social Needs: No Data to Display PFSH All Active Problems (Updated 11/07/23 @ 11:43 by Baldo Rudd NP) Contusion of hand, right (Acute) Pain, dental (Acute) Ganglion cyst of volar aspect of left wrist (Acute) Sleep trouble (Chronic 06/07/16) Childhood overweight, BMI 85-94.9 percentile (Chronic 06/07/16) Migraine (Chronic 07/02/14) Failed vision screen (Chronic 07/02/14) R 20/80, L 20/60 Medical History (Updated 11/07/23 @ 11:43 by Baldo Rudd NP) Concussion Reports at age 12 he struck his head on the bottom of the pool and was symptomatic for a few weeks afterwards Surgical History No significant past surgical history Family History Mother Migraine Decreased vision Father Substance abuse GRANDPARENT Heart disease Bleeding disorder Other Asthma Sister Decreased vision Maternal Aunt Decreased vision Social History Smoking/Tobacco Use Status: Current every day Tobacco Type: cigars Per week: 2 Smoking risk assessment performed?: Yes Alcohol Intake: current Alcohol Intake frequency: holidays/special occasions only Drug use: Daily Substance use type: marijuana Do you feel safe at home: Yes Do you feel safe in your relationship?: Yes
--- NOTE | 2023-11-07 11:40 | DI.RAD_ITS ---
Exam(s) XR HAND RT COMPLETE EXAM: XR HAND RT COMPLETE CLINICAL HISTORY: hand trauma- Third metacarpal/digit. TECHNIQUE: 2D digital imaging was performed of the right hand. Three images were obtained. AP, late ral and oblique views were obtained. COMPARISON: No exams were available for comparison FINDINGS: BONES: No acute fracture is present. No bony destructive lesion is seen. JOINTS: No dislocation present. SOFT TISSUE: Normal. IMPRESSION: Unremarkable radiographs of the right hand. DATA REPOSITORY: RADIATION DOSE DELIVERED:
== END 2023-11-07 12:14 | disposition home or self-care (01) ==
PROVIDERS: Emergency Provider Nurse Practitioner Family
DX: S60.221A Contusion of right hand, initial encounter (principal); W22.8XXA Striking against or struck by other objects, initial encounter; Y93.89 Activity, other specified; Y92.89 Other specified places as the place of occurrence of the external cause
CPT/HCPCS: 99283; 73130

== ENCOUNTER 2023-11-10 11:16 | Emergency (ER) | payer MEDICAID, SELFPAY ==
[2023-11-10 11:21] VITALS: BP 143/66; PULSE 98; RESP 24; TEMP 36.2; O2SAT 99
--- NOTE | 2023-11-10 11:41 | ED.GENADUL_ITS ---
Discharge Plan Disposition Patient Disposition: Home Condition: Stable Discharge Details Clinical Impression: Diarrhea, Nausea & vomiting Primary Care Provider: None,None ED Provider: Comfort Gay Home Meds and New Rx's Prescriptions: New prochlorperazine maleate [Compazine] 10 mg tablet 10 mg PO Q6H PRNQty: 10 0RF Continued albuterol sulfate 90 mcg/actuation HFA aerosol inhaler 2 puff inhalation Q6H PRN (Reason: shortness of breath or wheezing) Qty: 8.5 0RF fluticasone propionate [Flonase Allergy Relief] 50 mcg/actuation spray,suspension 1 spray intranasal DAILY Qty: 16 0RF Rx Instructions: administer into each nostril Discharge Instructions Instructions: Acute Nausea and Vomiting (ED), Acute Diarrhea (ED) Additional Instructions: Take the Compazine as needed for nausea and vomiting Clear liquids for the next several hours until you are able to tolerate them regularly May incorporate bland food, toast, applesauce, bananas Please be reevaluated she had persistence of symptoms Tylenol and ibuprofen as needed for pain and fever control Discharge Data Discharge Date/Time-TO BE ENTERED AT DEPARTURE: 11/10/23 13:35 HPI General Date/Time Provider Initiated Documentation: 11/10/23 11:27 . HPI Narrative: 23-year-old male otherwise healthy reportedly presents with nausea, vomiting, diarrhea starting this morning. Coworkers are sick with similar symptoms. Has some mild diffuse pain in his abdomen which she attributes to vomiting. Denies any additional complaints at this time. Related Data Home Medications Medication Instructions Recorded Confirmed albuterol sulfate 90 mcg/actuation 2 puff inhalation Q6H PRN 01/31/23 11/10/23 aerosol inhaler shortness of breath or wheezing #8.5 grams fluticasone propionate 50 1 spray intranasal DAILY #16 grams 08/09/23 11/10/23 mcg/actuation nasal spray,suspension (Flonase Allergy Relief) prochlorperazine maleate 10 mg 10 mg PO Q6H PRN #10 tabs 11/10/23 tablet (Compazine) Previous Rx's Medication Instructions Recorded albuterol sulfate 90 mcg/actuation 2 puff inhalation Q6H PRN 01/31/23 aerosol inhaler shortness of breath or wheezing #8.5 grams fluticasone propionate 50 1 spray intranasal DAILY #16 grams 08/09/23 mcg/actuation nasal spray,suspension (Flonase Allergy Relief) prochlorperazine maleate 10 mg 10 mg PO Q6H PRN #10 tabs 11/10/23 tablet (Compazine) Allergies Allergy/AdvReac Type Severity Reaction Status Date / Time orange Allergy Skin Rash Unverified 11/10/23 11:24 General Stated Complaint: Nausea/Vomit/Diar STAR: 3 Course Vital Signs Vital signs: Vital Signs Temperature 36.2 C L 11/10/23 11:21 Pulse 98 H 11/10/23 11:21 Respiratory Rate 24 11/10/23 11:21 Blood Pressure 143/66 H 11/10/23 11:21 Pulse Oximetry 99 11/10/23 11:21 Temperature 36.2 C L 11/10/23 11:21 Temperature Source Skin 11/10/23 11:21 Pulse 98 H 11/10/23 11:21 Respiratory Rate 24 11/10/23 11:21 Respiratory Effort Normal 11/10/23 11:23 Blood Pressure 143/66 H 11/10/23 11:21 Blood Pressure Position Sitting 11/10/23 11:21 Pulse Oximetry 99 11/10/23 11:21 Oxygen Delivery Method Room Air 11/10/23 11:21 Oxygen Flow Rate 0 11/10/23 11:21 Medical Decision Making This 23-year-old male presents with report of nausea, vomiting, diarrhea Nontender abdominal exam, moist mucous membranes Alert and oriented x 4 Pupils equal round reactive to light and accommodation Antiemetics applied Feeling marked improvement able to tolerate p.o. Chemistry displays dehydration, received 2 L of fluid and was able to urinate prior to discharge Return precautions reviewed and patient expressed understanding Suspect gastroenteritis pattern, patient is given low threshold to return should he have new or worsening complaints Quality:SDOH Health Related Social Needs: 2 No Data to Display PFSH All Active Problems (Updated 11/10/23 @ 13:18 by BESSY Montero) Nausea & vomiting (Acute) Diarrhea (Acute) Contusion of hand, right (Acute) Pain, dental (Acute) Ganglion cyst of volar aspect of left wrist (Acute) Sleep trouble (Chronic 06/07/16) Childhood overweight, BMI 85-94.9 percentile (Chronic 06/07/16) Migraine (Chronic 07/02/14) Failed vision screen (Chronic 07/02/14) R 20/80, L 20/60 Medical History (Updated 11/10/23 @ 13:18 by BESSY Montero) Concussion Reports at age 12 he struck his head on the bottom of the pool and was symptomatic for a few weeks afterwards Surgical History No significant past surgical history Family History Mother Migraine Decreased vision Father Substance abuse GRANDPARENT Heart disease Bleeding disorder Other Asthma Sister Decreased vision Maternal Aunt Decreased vision Social History Smoking/Tobacco Use Status: Current every day Tobacco Type: cigars Per week: 2 Smoking risk assessment performed?: Yes Alcohol Intake: current Alcohol Intake frequency: holidays/special occasions only Drug use: Daily Substance use type: marijuana Do you feel safe at home: Yes Do you feel safe in your relationship?: Yes
[2023-11-10] MEDS: Lactated Ringers 1,000 ML 2000 ML IV (12:05)
[2023-11-10] MEDS: Prochlorperazine 10 MG/2 ML VIAL 5 MG IVP (12:06)
[2023-11-10 12:10] LABS: Anion Gap 16.3 mmol/L (3-11); BUN 11 mg/dL (7-18); CO2 19.7 mmol/L (21.0-32.0); CREATININE 1.1 mg/dL (0.70-1.30); Calcium 10.3 mg/dL (8.5-10.1); Chloride 102 mmol/L (98-107); Estimated GFR 96.14 (mL/min/1.73m2); Glucose 111 mg/dL (74-106); Potassium 3.4 mmol/L (3.5-5.1); Sodium 138 mmol/L (136-145)
[2023-11-10] MEDS: Normal Saline 1,000 ML 1000 ML IV (12:40)
--- NOTE | 2023-11-10 13:11 | NUR.NOTE ---
pt tolerating water. asking for d/c. provider aware. Nursing Note:
[2023-11-10 13:35] VITALS: BP 151/58; PULSE 89; RESP 16; TEMP 37.1; O2SAT 100
[2023-11-10 13:36] VITALS: BP 151/58; PULSE 89; RESP 16; TEMP 37.1; O2SAT 100
== END 2023-11-10 13:35 | disposition home or self-care (01) ==
PROVIDERS: Emergency Provider Physician Assistant
DX: R11.2 Nausea with vomiting, unspecified (principal); R19.7 Diarrhea, unspecified; F17.290 Nicotine dependence, other tobacco product, uncomplicated
CPT/HCPCS: 80048; 96361; 96374; 99284; 99283; J0780

== ENCOUNTER 2025-02-01 08:40 | Emergency (ER) | payer SELFPAY ==
[2025-02-01] VITALS (10 sets, daily range): BP systolic 101–139; BP diastolic 55–96; PULSE 61–76; RESP 16–18; TEMP 36.4–36.9; O2SAT 95–98
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
[2025-02-01] MEDS: Metoclopramide 10 MG/2 ML VIAL IVP (09:19)
[2025-02-01] MEDS: diphenhydrAMINE 50 MG/ML VIAL 25 MG IVP (09:19)
[2025-02-01] MEDS: Normal Saline 1,000 ML 1000 ML IV (09:19)
[2025-02-01 09:22] LABS: Abs Immature Grans 0.02 10^3/uL (0.0-0.06); Absolute Basophil Count 0.04 10^3/uL (0.0-0.2); Absolute Lymphocyte Count 2.31 10^3/uL (1.2-3.4); Absolute Monocyte Count 0.48 10^3/uL (0.1-0.8); Absolute Neutrophil Count 4.14 10^3/uL (1.2-6.7); Basophils % 0.6 %; Eosinophils % 1.4 %; HCT 45.2 % (40.0-50.0); HGB 14.7 g/dL (13.5-17.5); Immature Grans % 0.3 %; Lymphocytes % 32.6 %; MCH 27.7 pg (27.0-33.0); MCHC 32.5 % (32.0-36.0); MCV 85 fL (80-95); Monocytes % 6.8 %; Neutrophils % 58.3 %; Platelet Count 236 10^3/uL (130-400); RDW 12.8 % (11.8-14.1); RDW-SD 39.2 fL; WBC 7.09 10^3/uL (4.4-10.8)
[2025-02-01 09:38] LABS: ALT 56 U/L (16-63); AST 27 U/L (15-37); Alkaline Phosphatase 73 U/L (46-116); Anion Gap 8.7 mmol/L (3-11); BUN 14 mg/dL (7-18); Bilirubin, Total 0.4 mg/dL (0.2-1.0); CO2 25.3 mmol/L (21.0-32.0); CREATININE 0.9 mg/dL (0.70-1.30); Calcium 9.5 mg/dL (8.5-10.1); Chloride 104 mmol/L (98-107); Estimated GFR 121.55 (mL/min/1.73m2); Glucose 109 mg/dL (74-106); Lipase 28 U/L (<78); Potassium 4.3 mmol/L (3.5-5.1); Sodium 138 mmol/L (136-145); Total Protein 7.4 g/dL (6.4-8.2)
[2025-02-01 09:39] LABS: Bilirubin Negative (Negative); Blood Negative (Negative); Clarity Clear (Clear); Glucose Negative (Negative); Ketones Negative (Negative); Leukocyte Esterase Negative (Negative); Nitrite Negative (Negative); Specific Gravity 1.015 (1.005-1.025); Urobilinogen 0.2 mg/dL (Up to 0.2)
== END 2025-02-01 10:08 | disposition home or self-care (01) ==
LOC: ER 10:17
PROVIDERS: Emergency Provider Physician Assistant
DX: G43.909 Migraine, unspecified, not intractable, without status migrainosus (principal); R11.2 Nausea with vomiting, unspecified
CPT/HCPCS: 99283; 99284; 96374; 96375; 80053; 83690; 81003; 85025; J1200; J2765